=== PATIENT | male | born 1990 | race Caucasian/White ===

== ENCOUNTER 2018-03-24 23:45 | Emergency (ER) | payer SELFPAY ==
[2018-03-24 23:48] VITALS: PULSE 84; RESP 20; TEMP 35.8; BMI 22.1
--- NOTE | 2018-03-25 00:33 | ED.VISSUMM ---
- ER Visit Summary Date of Service: 03/25/18 Chief Complaint: [] Nausea vomiting diarrhea History of Present Illness: The patient is a 27 M complaining of nausea vomiting diarrhea that started this afternoon. He has had 10 episodes of vomiting nonbloody and 5 episodes of loose diarrhea. Positive abdominal dull aching cramping pain. He tried some dqvr-acf-xatjxzq stomach medicine with no relief. No sick contacts. No bad foods or recent antibiotics. He had this 1 time in the past with the stomach flu. Physical Examination: Vital signs reviewed General: Well-nourished well-developed Head: Normocephalic atraumatic Eyes: Pupils equal round and reactive to light extraocular movements intact ENT: TMs clear no hemotympanum no trauma Neck: Nontender full range of motion Cardiovascular: Regular rate rhythm no murmurs normal S1-S2 Respiratory: No distress clear to auscultation bilaterally chest nontender Abdomen: Soft mild diffuse tenderness. Nondistended normal bowel sounds no masses Back: Nontender no CVA tenderness Extremities: Nontender active range of motion ?4 extremities no trauma Skin: Normal color no trauma Neuro alert oriented cranial nerves II through XII intact normal strength sensation reflexes Test Results: [] Emergency Department Course and Treatment: [] Given IV fluids, Zofran and morphine. Lab work obtained. Lab work shows a white count of 15.0. Potassium 3.4. Lipase normal. Liver function tests normal. CT abdomen pelvis obtained shows a mild short transverse colonic colitis. Patient given Cipro Flagyl. [place] better after treatment with Phenergan as well. At this time I feel the patient can be discharged with Cipro Flagyl Zofran and Phenergan. He will follow-up as an outpatient. I have a feeling this is infectious colitis Treatment Plan: [] Disposition: [] Impression: [] Infectious colitis This note was generated with [employer] dictation software. It may contain incorrect words, spelling, and punctuation that were not noted in review of the chart prior to signing ED Disposition - Plan for ED Patient: Chief Complaint: Nausea/Vomiting Referrals: Care Physician,No Primary [Primary Care Provider] -
[2018-03-25] MEDS: Ondansetron 4 MG/2 ML Vial IV (00:49)
[2018-03-25] MEDS: Morphine 4 MG/ML Syringe IV (00:49)
[2018-03-25] MEDS: 0.9% Normal Saline 1,000 ML 1000 ML IV ×2 (00:49→02:50)
[2018-03-25 00:58] LABS: Absolute Lymphocyte Count 0.88 X10^3/ul (0.83-4.51); Absolute Neutrophil Count 13.8 X10^3/uL (2.0-7.7); Hematocrit 47.5 % (40-54); Hemoglobin 16.4 g/dl (13.0-16.5); Lymphocyte # 0.88 X10^3/ul (4.0); Lymphocyte % 5.9 % (19-41); Mean Corp Hgb Conc 34.5 g/gl (32-36); Mean Corpuscular Hgb 29.9 pg (27.0-32.0); Mean Corpuscular Volume 86.7 fL (80-94); Mean Platelet Vol. 11.3 fl (6.2-12.0); Neutrophil # 13.81 X10^3/uL (2.7-7.7); Neutrophil % 91.9 % (47-70); Platelet Count 219 K/mm3 (150-450); RBC Distribution Width SD 41.4 fl (35.1-43.9); Red Blood Count 5.48 M/mm3 (4.6-6.2)
[2018-03-25 00:59] LABS: POSITIVE COUNT NO; POSITIVE DIFFERENTIAL NO; POSITIVE MORPHOLOGY NO
--- NOTE | 2018-03-25 02:24 | CT_ITS ---
STUDY: CT ABDOMEN AND PELVIS WITH CONTRAST REASON FOR EXAM: Male, 27 years old. Lower abdominal pain and vomiting TECHNIQUE: Transaxial images were obtained from the dome of the diaphragm to the symphysis pubis without oral contrast. 100 ml of Isovue 300 contrast was administered. Sagittal and coronal images were reconstructed. Individualized dose optimization techniques were used for this CT. COMPARISON: None. FINDINGS: The visualized lung bases are unremarkable. The visualized portions of the heart are within normal limits. Normal liver. Normal gallbladder and extrahepatic biliary system. Normal spleen. Normal pancreas. Normal bilateral adrenal glands. Normal right kidney. Normal left kidney. Normal bilateral ureters. Normal visualized stomach. Normal small intestine. There is mild concentric colonic wall thickening of the hepatic flexure with relative decompression of the transverse and descending colonic segments. The appendix is visualized and appears normal. Normal abdominal aorta. Normal inferior vena cava. Normal retroperitoneum. Normal urinary bladder. Normal abdominal wall. Normal osseous structures. CT/Abdomen/Pelvis W IV Cont ONLY IMPRESSION: Mild short segment colitis involving the transverse colon of likely infectious or inflammatory in etiology. Electronically Signed: Michael Recinos MD at 2:58 EST Tel , Service support ,
--- NOTE | 2018-03-25 02:26 | ED.RN ---
COMPUTER CHARTING REINSTATED. PLEASE SEE PAPER CHARTING FOR DOWN TIME PERIOD.
[2018-03-25 02:31] LABS: AST(SGOT) 26 U/L (15-37); Alanine Aminotransfer ALT/SGPT 40 U/L (16-61); Albumin, Serum 4.6 g/dL (3.2-5.0); Alkaline Phosphatase 93 U/L (45-117); Anion Gap 11 (5-15); BUN 10 mg/dL (7-18); BUN/Creat Ratio 8.9 RATIO (10-20); Calcium,Total 9.8 mg/dL (8.5-10.1); Chloride 102 mmol/L (98-107); Creatinine, Serum 1.12 mg/dL (0.70-1.30); EST Glomerular Filtration Rate 83 mL/min (>60); Est Glom Filt Rate - Afr Amer 100 mL/min (>60); Estimated Creatinine Clearance 103.19 ml/min; Globulin 4.6 g/dL (2.2-4.2); Glucose 153 mg/dL (74-106); Lipase 45 U/L (73-393); Potassium 3.4 mmol/L (3.5-5.1); Protein, Total 9.2 g/dL (6.4-8.2); Sodium Level 136 mmol/L (136-145)
[2018-03-25] MEDS: proMETHazine 25 MG/ML Syringe 12.5 MG IV (02:59)
[2018-03-25 03:03] VITALS: BP 118/79; PULSE 92; RESP 18; O2SAT 99
[2018-03-25] MEDS: Ciprofloxacin 400 MG/200 ML BAG 200 MG IV (04:19)
--- NOTE | 2018-03-25 05:13 | ED.DEP ---
ED Disposition - Plan for ED Patient: Disposition: Home or Assisted Living Chief Complaint: Nausea/Vomiting Instructions: ED Gastroenteritis Bacterial Prescriptions: proMETHazine tablet [Phenergan] 25 mg PO Q6H PRN PRN #10 tab PRN Reason: Nausea Ondansetron [Zofran Odt] 4 mg PO Q8H PRN PRN #10 tab PRN Reason: Nausea Metronidazole [Flagyl] 500 mg PO Q8H #21 tab Ciprofloxacin [Cipro] 500 mg PO BID #14 tab Referrals: Kishan Philip MD [STAFF PHYSICIAN] -
[2018-03-25 05:54] VITALS: RESP 16
--- OUTSIDE RECORDS SUMMARY | 2018-05-27 00:07 | XMS RPT_ITS ---
:1990 Author Organization [facility] Care Team Providers Name Role Phone Primay Care Physicia, No Primary Care Unavailable Shabbir Kraus Attending Unavailable PROBLEMS PROBLEMS No Problem Records FoundPROCEDURES PROCEDURES No Procedure Records FoundRESULTS RESULTS EMERGENCY DEPARTMENT Observed: 03/25/2018 Status: F Source: [place] SUMMARY 5:44 AM [facility] REPOSITORY [facility] Medical Records Department [address] [place] [address] Emergency Department Summary 03/25/18 0033 MR#: [id number] Acct: [id number] Name: MONTEZ HOWARD Rep #: [id number] : 1990 27 From: Shabbir Kraus MD PCP: Care Physician, No Primary Status: REG ER - ER Visit Summary Date of Service: 03/25/18 Chief Complaint: [] Nausea vomiting diarrhea History of Present Illness: The patient is a 27 M complaining of nausea vomiting diarrhea that started this afternoon. He has had 10 episodes of vomiting nonbloody and 5 episodes of loose diarrhea. Positive abdominal dull aching cramping pain. He tried some qhja-kjf-xkkyqmo stomach medicine with no relief. No sick contacts. No bad foods or recent antibiotics. He had this 1 time in the past with the stomach flu. Physical Examination: Vital signs reviewed General: Well-nourished well-developed Head: Normocephalic atraumatic Eyes: Pupils equal round and reactive to light extraocular movements intact ENT: TMs clear no hemotympanum no trauma Neck: Nontender full range of motion Cardiovascular: Regular rate rhythm no murmurs normal S1-S2 Respiratory: No distress clear to auscultation bilaterally chest nontender Abdomen: Soft mild diffuse tenderness. Nondistended normal bowel sounds no masses Back: Nontender no CVA tenderness Extremities: Nontender active range of motion 4 extremities no trauma Skin: Normal color no trauma Neuro alert oriented cranial nerves II through XII intact normal strength sensation reflexes Test Results: [] Emergency Department Course and Treatment: [] Given IV fluids, Zofran and morphine. Lab work obtained. Lab work shows a white count of 15.0. Potassium 3.4. Lipase normal. Liver function tests normal. CT abdomen pelvis obtained shows a mild short transverse colonic colitis. Patient given Cipro Flagyl. [place] better after treatment with Phenergan as well. At this time I feel the patient can be discharged with Cipro Flagyl Zofran and Phenergan. He will follow-up as an outpatient. I have a feeling this is infectious colitis Treatment Plan: [] Disposition: [] Impression: [] Infectious colitis This note was generated with [employer] dictation software. It may contain incorrect words, spelling, and punctuation that were not noted in review of the chart prior to signing ED Disposition - Plan for ED Patient: Chief Complaint: Nausea/Vomiting Referrals: Care Physician,No Primary [Primary Care Provider] - What to do if you have Problems For any increased pain, shortness of breath, bleeding, nausea or vomiting, chest pain, or any unexpected problems, contact your Primary Care Provider. Call [facility] ([phone]) or report to the closest Emergency Room. Call 911 if necessary. 03/25/18 0544 <Electronically signed by Shabbir Kraus MD> Date Shabbir Kraus MD Cosigner Signature (If Indicated): Date CC: No Primary Care Physician DISCHARGE INSTRUCTION Observed: 03/25/2018 Status: F Source: [place] 5:44 AM [facility] REPOSITORY [facility] Medical Records Department [address] [place] [address] Discharge Instruction 03/25/18 0513 MR#: [id number] Acct: [id number] Name: MONTEZ HOWARD Rep #: [id number] : 1990 27 From: Shabbir Kraus MD PCP: Care Physician, No Primary Status: REG ER ED Disposition - Plan for ED Patient: Disposition: Home or Assisted Living Chief Complaint: Nausea/Vomiting Instructions: ED Gastroenteritis Bacterial Prescriptions: proMETHazine tablet [Phenergan] 25 mg PO Q6H PRN PRN #10 tab PRN Reason: Nausea Ondansetron [Zofran Odt] 4 mg PO Q8H PRN PRN #10 tab PRN Reason: Nausea Metronidazole [Flagyl] 500 mg PO Q8H #21 tab Ciprofloxacin [Cipro] 500 mg PO BID #14 tab Referrals: Kishan Philip MD [STAFF PHYSICIAN] - What to do if you have Problems For any increased pain, shortness of breath, bleeding, nausea or vomiting, chest pain, or any unexpected problems, contact your Primary Care Provider. Call [facility] ([phone]) or report to the closest Emergency Room. Call 911 if necessary. 03/25/18 0544 <Electronically signed by Shabbir Kraus MD> Date Shabbir Kraus MD Cosigner Signature (If Indicated): Date CC: No Primary Care Physician ABDOMEN/PELVIS W IV CONT Observed: 03/25/2018 Status: F Source: [place] ONLY 2:25 AM [facility] REPOSITORY [facility] Imaging Services [address] [place] [address] Abdomen/Pelvis W IV Cont ONLY MR#: [id number] Acct: [id number] Name: MONTEZ HOWARD Rep #: [id number] : 1990 M 27 From: Michael Recinos MD PCP: Care Physician, No Primary Status: REG ER Study: Abdomen/Pelvis W IV Cont ONLY Date of Exam: 03/25/18 Exam# [id number] Ordering Dr: Shabbir Kraus MD STUDY: CT ABDOMEN AND PELVIS WITH CONTRAST REASON FOR EXAM: Male, 27 years old. Lower abdominal pain and vomiting TECHNIQUE: Transaxial images were obtained from the dome of the diaphragm to the symphysis pubis without oral contrast. 100 ml of Isovue 300 contrast was administered. Sagittal and coronal images were reconstructed. Individualized dose optimization techniques were used for this CT. COMPARISON: None. FINDINGS: The visualized lung bases are unremarkable. The visualized portions of the heart are within normal limits. Normal liver. Normal gallbladder and extrahepatic biliary system. Normal spleen. Normal pancreas. Normal bilateral adrenal glands. Normal right kidney. Normal left kidney. Normal bilateral ureters. Normal visualized stomach. Normal small intestine. There is mild concentric colonic wall thickening of the hepatic flexure with relative decompression of the transverse and descending colonic segments. The appendix is visualized and appears normal. Normal abdominal aorta. Normal inferior vena cava. Normal retroperitoneum. Normal urinary bladder. Normal abdominal wall. Normal osseous structures. CT/Abdomen/Pelvis W IV Cont ONLY IMPRESSION: Mild short segment colitis involving the transverse colon of likely infectious or inflammatory in etiology. Electronically Signed: Michael Recinos MD at 2:58 EST Tel , Service support , CC: No Primary Care Physician; Shabbir Kraus MD Optometric Aide: Signed CBC W/DIFF, AUTOMATED Collected: 03/25/2018 Status: F Source: [place] 12:50 AM [facility] REPOSITORY TYPE CODE TESTS RESULT OUT OF RANGE REFERENCE UNITS LAB L100.1000 4.4-11.0 K/mm3 High WBC 15.0 LAB L100.1200 4.6-6.2 M/mm3 Normal RBC 5.48 LAB L100.1300 13.0-16.5 g/dl Normal HGB 16.4 LAB L100.1400 40-54 % Normal HCT 47.5 LAB L100.1500 80-94 fL Normal MCV 86.7 LAB L100.1600 27.0-32.0 pg Normal MCH 29.9 LAB L100.1700 32-36 g/gl Normal MCHC 34.5 LAB L100.1810 11.6-14.6 % Normal RDW CV 13.0 LAB L100.1820 35.1-43.9 fl Normal RDW SD 41.4 LAB L100.1900 150-450 K/mm3 Normal PLT 219 LAB L100.2000 6.2-12.0 fl Normal MPV 11.3 LAB L100.2100 47-70 % High NEUT% 91.9 LAB L100.2200 19-41 % Low LY% 5.9 LAB L100.2300 0-10 % Normal MONO% 2.0 LAB L100.2400 0-5 % Normal EO% 0.0 LAB L100.2500 0-1 % Normal BASO% 0.0 LAB L100.2550 0.0-0.9 % Normal IM GRAN % 0.200 Result Comment: IG% - Immature Granulocytes (promyelocytes, myelocytes and metamyelocytes) > 1% indicates that a LEFT SHIFT is Present. LAB L100.2620 2.0-7.7 X10 3/uL High Absolute Neut 13.8 LAB L100.2720 0.83-4.51 X10 3/ul Normal Absolute Lymph 0.88 Performed By: #### L100.0100 #### [facility] [address] [place], [address] COMPREHENSIVE METABOLIC Collected: 03/25/2018 Status: F Source: [facility] 12:50 AM [facility] REPOSITORY TYPE CODE TESTS RESULT OUT OF RANGE REFERENCE UNITS LAB L501.0100 74-106 mg/dL High GLU 153 Result Comment: Fasting Glucose result greater than or equal to 126 mg/dL suggests DIABETES MELLITUS per A.D.A. criteria. Please note revised GLUCOSE reference range effective 2017. LAB L501.1000 7-18 mg/dL Normal BUN 10 LAB L501.1100 0.70-1.30 mg/dL Normal CREAT,SERUM 1.12 Result Comment: The validity of the calculated GFR AND GFRAA in patients over 70 years has not been determined. Clinical correlation is essential. LAB L501.1110 >60 mL/min Normal EST GFR 83 Result Comment: Non- GFR Calc LAB L501.1115 >60 mL/min Normal EST GFR - AA 100 Result Comment: GFR Calc LAB L501.1255 ml/min Normal Estimated CRCL 103.19 LAB L501.1300 10-20 RATIO Low BUN/CRE 8.9 LAB L501.1500 6.4-8. g/dL High 2 T PROT 9.2 LAB L501.1800 3.2-5. g/dL 0 ALB Normal 4.6 LAB L501.1950 2.2-4. g/dL High 2 GLOB 4.6 LAB L501.2000 0.9-2. RATIO 4 A/G Normal 1.0 LAB L501.2200 8.5-10 mg/dL .1 CA Normal 9.8 LAB L501.4100 15-37 U/L AST Normal 26 LAB L501.4305 45-117 U/L ALK P Normal 93 LAB L501.4405 16-61 U/L ALT Normal 40 LAB L501.4600 0.20-1 mg/dL .00 T BILI Normal 0.60 LAB L501.5300 136-14 mmol/L 5 NA Normal 136 LAB L501.5600 3.5-5. mmol/L Low 1 K 3.4 LAB L501.5900 98-107 mmol/L CL Normal 102 LAB L501.6100 21.0-3 mmol/L 2.0 CO2 Normal 23.0 LAB L501.6200 5-15 GAP Normal 11 Performed By: #### L500.4050, L501.2450 #### [facility] [address] [place], [address] LIPASE Collected: 03/25/2018 Status: F Source: [place] 12:50 AM [facility] REPOSITORY TYPE CODE TESTS RESULT OUT OF REFERENCE UNITS RANGE LAB L501.2450 73-393 U/L Low LIPASE 45 Performed By: #### L500.4050, L501.2450 #### [facility] [address] [place], [place], [address] ALLERGIES ALLERGIES DATE TYPE / CODE NAME / CODE REACTION SEVERITY SOURCE 03/24/2018 Drug No Known Unknown [facility] Allergy/4160 Allergies/F00 [facility] [address]382(SNOMED [id number](RXNOR Repository CT) M) ENCOUNTERS ENCOUNTERS ADMIT/DISCHARGE ACCOUNT ADMITTING ENCOUNTER LOCATION SOURCE NUMBER CLASS 03/24/2018/ [id number] Emergency Josef Wiley [address] [place] [address] ing:ED Repository PAYERS PAYERS ENCOUNTER GUARANTOR PAYER SUBSCRIBER SOURCE 03/24/2018 [facility] [address]Rex: [phone] Number: Effective Repository [phone] () Date:2018-03-24
== END 2018-03-25 05:54 | disposition home or self-care (01) ==
PROVIDERS: Emergency Provider Emergency Medicine
DX: A09 Infectious gastroenteritis and colitis, unspecified (principal); Z72.0 Tobacco use
CPT/HCPCS: 74160; 74177; 80053; 83690; 85025; 96361; 96365; 96366; 96367; 96375; 99283; J7030; Q9967; J0744; J2405

== ENCOUNTER 2018-05-26 15:41 | Emergency (ER) | payer SELFPAY ==
[2018-05-26 15:42] VITALS: BP 140/73; PULSE 71; RESP 18; TEMP 36.3; O2SAT 96; BMI 21.7
--- NOTE | 2018-05-26 16:13 | ED.VISSUMM ---
- ER Visit Summary Date of Service: 05/26/18 Chief Complaint: Nausea, vomiting and diarrhea History of Present Illness: The patient is a 27 M no dyspnea past medical or surgical history. Patient states in March of same episode to this secondary to colitis. States that he had nausea, vomiting diarrhea today the diarrhea was first name and nausea vomiting. Mild abdominal cramping. No fever. No dysuria. No melena. No hematemesis. He has had no prior abdominal surgeries. Physical Examination: Well-appearing male. Vital signs are stable. He is afebrile. Blood pressure 140/73. H EENT exam unremarkable. Moist mucous membranes. Neck nontender no lymphadenopathy. Lungs clear to auscultation bilaterally. Heart regular rhythm no murmur rate about 80. Abdomen soft and nontender. Nondistended normal bowel sounds no peritoneal signs. No signs of obstruction. No hernias or masses. Both the right upper and right lower quadrant unremarkable. Extremities moving all 4. Neurovascular intact. No edema. Back nontender. Neurologically is awake and alert with no focal motor deficits. Test Results: CBC shows a white count of 13. Normal H&H. No bands. Electrolytes unremarkable normal creatinine normal gap. Emergency Department Course and Treatment: Treated with IV fluids and IV Phenergan. Patient was also given Toradol for his crampy abdominal pain. Additional Phenergan. Additional IV Zofran and Ativan. On multiple repeat exams he is feeling better. He has been able to hold down p.o. fluids. He is comfortable being discharged home. I do not feel he needs any imaging. Treatment Plan: Fluids and rest. Increase diet slowly. Zofran as needed for nausea. Disposition: Discharge Impression: Acute nausea and vomiting This note was generated with [employer] dictation software. It may contain incorrect words, spelling, and punctuation that were not noted in review of the chart prior to signing ED Disposition - Plan for ED Patient: Referrals: Care Physician,No Primary [Primary Care Provider] -
[2018-05-26] MEDS: proMETHazine 25 MG/ML Syringe 12.5 MG IV ×3 (16:23→20:58)
[2018-05-26] MEDS: 0.9% Normal Saline 1,000 ML 1000 ML IV (16:23)
[2018-05-26] MEDS: Ketorolac 30 MG/ML Syringe IV (17:03)
[2018-05-26] MEDS: Ondansetron 4 MG/2 ML Vial IV (17:40)
[2018-05-26] MEDS: LORazepam 2 MG/ML Syringe 1 MG IV ×2 (17:41→20:59)
--- NOTE | 2018-05-26 17:42 | ED.RN ---
pt vomiting again, some bile. new orders recied. pt now dry heaving
[2018-05-26 19:55] VITALS: RESP 14
[2018-05-26 21:00] VITALS: BP 123/79; PULSE 64; RESP 12; O2SAT 99
[2018-05-26 21:20] LABS: Absolute Lymphocyte Count 0.83 X10^3/ul (0.83-4.51); Absolute Neutrophil Count 12.4 X10^3/uL (2.0-7.7); Eosinophil# 0.01 X10^3/uL; Eosinophils% 0.1 % (0-5); Hematocrit 46.7 % (40-54); Hemoglobin 16.1 g/dl (13.0-16.5); Lymphocyte # 0.83 X10^3/ul (4.0); Lymphocyte % 6.1 % (19-41); Mean Corp Hgb Conc 34.5 g/gl (32-36); Mean Corpuscular Hgb 30.4 pg (27.0-32.0); Mean Corpuscular Volume 88.1 fL (80-94); Mean Platelet Vol. 12.6 fl (6.2-12.0); Monocyte# 0.37 X10^3/uL; Monocyte% 2.7 % (0-10); Neutrophil # 12.36 X10^3/uL (2.7-7.7); Platelet Count 236 K/mm3 (150-450); RBC Distribution Width CV 13.1 % (11.6-14.6); RBC Distribution Width SD 42.1 fl (35.1-43.9); White Blood Count 13.6 K/mm3 (4.4-11.0)
[2018-05-26 21:30] LABS: POSITIVE COUNT NO; POSITIVE DIFFERENTIAL NO; POSITIVE MORPHOLOGY NO
[2018-05-26 22:21] LABS: Anion Gap 6 (5-15); BUN 10 mg/dL (7-18); BUN/Creat Ratio 10.1 RATIO (10-20); Calcium,Total 8.5 mg/dL (8.5-10.1); Chloride 108 mmol/L (98-107); Creatinine, Serum 0.99 mg/dL (0.70-1.30); EST Glomerular Filtration Rate 95 mL/min (>60); Est Glom Filt Rate - Afr Amer 115 mL/min (>60); Estimated Creatinine Clearance 114.03 ml/min; Glucose 135 mg/dL (74-106); Potassium 3.7 mmol/L (3.5-5.1); Sodium Level 140 mmol/L (136-145)
--- NOTE | 2018-05-26 23:13 | ED.DEP ---
ED Disposition - Plan for ED Patient: Disposition: Home or Assisted Living Instructions: ED Nausea Vomiting Prescriptions: Ondansetron [Zofran Odt] 4 mg PO Q8H PRN PRN #10 tab PRN Reason: Nausea Referrals: Jamar Yarbrough MD [STAFF PHYSICIAN] - 3-5 Days if not improving Additional Instructions: Plenty fluids and rest. Increase diet as tolerated. Zofran for nausea. Follow-up if not improving.
[2018-05-26 23:30] VITALS: BP 127/92; PULSE 78; RESP 16; O2SAT 99
[2018-05-26] MEDS: Ondansetron ODT 4 MG Tablet PO (23:30)
== END 2018-05-26 23:34 | disposition home or self-care (01) ==
PROVIDERS: Emergency Provider Emergency Medicine
DX: R11.2 Nausea with vomiting, unspecified (principal); R19.7 Diarrhea, unspecified; R10.9 Unspecified abdominal pain; Z72.0 Tobacco use
CPT/HCPCS: 80048; 85025; 96361; 96374; 96375; 96376; 99284; J7030; A4216; J2405

== ENCOUNTER 2018-05-28 07:52 | Emergency (ER) | payer SELFPAY ==
[2018-05-28 07:53] VITALS: BP 125/78; PULSE 66; RESP 14; TEMP 37.2; O2SAT 100; BMI 20.6
--- NOTE | 2018-05-28 08:06 | CT_ITS ---
STUDY: CT ABDOMEN AND PELVIS WITH CONTRAST REASON FOR EXAM: Male, 27 years old. The patient has a history of nausea and vomiting. RADIATION DOSAGE (If Supplied By Facility): CTDIvol = ( 9.91 ) mGy, DLP = ( 362.80 ) mGycm TECHNIQUE: Transaxial images were obtained from the dome of the diaphragm to the symphysis pubis with oral contrast. 100ml IV/Oral Isovue 300 was administered. Sagittal and coronal images were reconstructed. Individualized dose optimization techniques were used for this CT. COMPARISON: Comparison is made with prior study dated March 25, 2018. FINDINGS: The visualized lung bases are unremarkable. The visualized portions of the heart are within normal limits. Normal liver. Normal gallbladder and extrahepatic biliary system. Normal spleen. Normal pancreas. Normal bilateral adrenal glands. Normal right kidney. Normal left kidney. Normal visualized stomach. Normal small intestine. There is evidence of diffuse circumferential thickness of the wall of the transverse colon and descending colon suggestive of a colitis. There is also evidence of a edematous changes involving the ascending colon. The appendix is visualized and appears normal. Normal abdominal aorta. Normal inferior vena cava. Normal retroperitoneum. Normal urinary bladder. Normal abdominal wall. Normal osseous structures. CT/Abdomen/Pelvis WITH Contrast IMPRESSION: Findings in keeping with colitis involving the descending, transverse and descending colon. Electronically Signed: Bobo Eugene, at 11:20 EDT , Service support ,
[2018-05-28] MEDS: 0.9% Normal Saline 1,000 ML 1000 ML IV (08:14)
[2018-05-28] MEDS: Ketorolac 30 MG/ML Syringe IV (08:14)
[2018-05-28] MEDS: proMETHazine 25 MG/ML Syringe 12.5 MG IV (08:14)
--- NOTE | 2018-05-28 08:15 | ED.VISSUMM ---
- ER Visit Summary Date of Service: 05/28/18 Chief Complaint: Nausea and vomiting History of Present Illness: The patient is a 27 M who was seen in the ER for nausea, vomiting, and diarrhea on the . Patient states he had become ill that day. He states he slept all day yesterday and then woke this morning and has vomited 3 times already. He states he has not had further stool and does not believe he is passing gas. Patient was seen in March for similar symptoms and had colitis. He states a few years ago he had to be admitted at [facility] for similar but he does not remember his final diagnosis. Patient has had no prior abdominal surgeries. Physical Examination: Vital signs are unremarkable. Patient is in no acute distress and is nontoxic appearing. Head and neck examination is normal. Heart is regular rate and rhythm. Palpable pulses are noted throughout. Lungs are clear with good air movement throughout. Abdomen is soft and nontender. Hypoactive bowel sounds are present. Extremity examination is unremarkable with full range of motion. Neurologic examination reveals no focal deficits. Test Results: CBC is unremarkable. Chemistry studies significant only for potassium slightly low at 3.3. LFTs normal. CT abdomen pelvis with contrast shows colitis of the transverse and descending colon. Emergency Department Course and Treatment: Patient was initially given Phenergan, Toradol, and IV fluids. After drinking the contrast initially he did vomit again. He was then given a dose of Reglan and Benadryl. At this time patient is resting comfortably. Test results are discussed with him. We will treat him with a course of Cipro and Flagyl. I recommended follow-up with surgeon for possible colonoscopy after this acute flare is over as this is at least the third time he has had colitis. Treatment Plan: [] Disposition: Discharge Impression: Colitis This note was generated with [employer] dictation software. It may contain incorrect words, spelling, and punctuation that were not noted in review of the chart prior to signing ED Disposition - Plan for ED Patient: Referrals: Care Physician,No Primary [Primary Care Provider] -
[2018-05-28 08:18] LABS: Absolute Lymphocyte Count 1.41 X10^3/ul (0.83-4.51); Absolute Neutrophil Count 5.8 X10^3/uL (2.0-7.7); Eosinophil# 0.03 X10^3/uL; Eosinophils% 0.4 % (0-5); Hematocrit 47.2 % (40-54); Hemoglobin 16.2 g/dl (13.0-16.5); Lymphocyte # 1.41 X10^3/ul (4.0); Mean Corp Hgb Conc 34.3 g/gl (32-36); Mean Corpuscular Hgb 30.2 pg (27.0-32.0); Mean Corpuscular Volume 88.1 fL (80-94); Mean Platelet Vol. 11.5 fl (6.2-12.0); Monocyte% 7.7 % (0-10); Neutrophil # 5.77 X10^3/uL (2.7-7.7); Neutrophil % 73.8 % (47-70); Platelet Count 232 K/mm3 (150-450); RBC Distribution Width SD 41.9 fl (35.1-43.9); Red Blood Count 5.36 M/mm3 (4.6-6.2); White Blood Count 7.8 K/mm3 (4.4-11.0)
[2018-05-28 08:19] LABS: POSITIVE COUNT NO; POSITIVE DIFFERENTIAL NO; POSITIVE MORPHOLOGY NO
[2018-05-28 08:36] LABS: AST(SGOT) 15 U/L (15-37); Alanine Aminotransfer ALT/SGPT 31 U/L (16-61); Albumin, Serum 4.2 g/dL (3.2-5.0); Alkaline Phosphatase 86 U/L (45-117); Anion Gap 8 (5-15); BUN 10 mg/dL (7-18); BUN/Creat Ratio 8.2 RATIO (10-20); Bilirubin, Direct 0.17 mg/dL (0.00-0.30); Calcium,Total 9.4 mg/dL (8.5-10.1); Chloride 102 mmol/L (98-107); Creatinine, Serum 1.22 mg/dL (0.70-1.30); EST Glomerular Filtration Rate 75 mL/min (>60); Est Glom Filt Rate - Afr Amer 90 mL/min (>60); Estimated Creatinine Clearance 88.11 ml/min; Globulin 4.6 g/dL (2.2-4.2); Glucose 133 mg/dL (74-106); Potassium 3.3 mmol/L (3.5-5.1); Protein, Total 8.8 g/dL (6.4-8.2); Sodium Level 140 mmol/L (136-145)
[2018-05-28] MEDS: 0.9% Normal Saline 1,000 ML 150 ML IV (09:03)
[2018-05-28] MEDS: DiphenhydrAMINE 50 MG/ML Syringe 25 MG IV (09:03)
[2018-05-28] MEDS: Metoclopramide 10 MG/2 ML Vial IV (09:03)
--- NOTE | 2018-05-28 11:46 | ED.DEP ---
ED Disposition - Plan for ED Patient: Disposition: Home or Assisted Living Instructions: ED Gastroenteritis Bacterial Prescriptions: proMETHazine tablet [Phenergan] 25 mg PO Q6H PRN PRN #10 tablet PRN Reason: Nausea Ciprofloxacin [Cipro] 500 mg PO BID #14 tablet Metronidazole [Flagyl] 500 mg PO Q6H #40 tablet Referrals: Mynor Alcantar MD [STAFF PHYSICIAN] - 1-2 Weeks
[2018-05-28 11:59] VITALS: BP 124/76; PULSE 84; RESP 16; O2SAT 98
== END 2018-05-28 12:04 | disposition home or self-care (01) ==
PROVIDERS: Emergency Provider Emergency Medicine
DX: K52.9 Noninfective gastroenteritis and colitis, unspecified (principal); E87.6 Hypokalemia; Z72.0 Tobacco use
CPT/HCPCS: 74177; 80048; 80076; 85025; 96361; 96374; 96375; 99283; J7030; Q9967; A4216

== ENCOUNTER 2018-05-30 14:00 | Emergency (ER) | payer SELFPAY ==
[2018-05-30 14:00] VITALS: BP 140/84; PULSE 74; RESP 16; TEMP 36.6; O2SAT 98; BMI 20.9
[2018-05-30 14:46] LABS: Absolute Neutrophil Count 8.6 X10^3/uL (2.0-7.7); Basophil# 0.01 X10^3/uL; Basophil% 0.1 % (0-1); Eosinophil# 0.38 X10^3/uL; Eosinophils% 3.2 % (0-5); Hematocrit 46.2 % (40-54); Hemoglobin 16.2 g/dl (13.0-16.5); Lymphocyte % 15.3 % (19-41); Mean Corp Hgb Conc 35.1 g/gl (32-36); Mean Corpuscular Hgb 30.4 pg (27.0-32.0); Mean Corpuscular Volume 86.7 fL (80-94); Mean Platelet Vol. 11.1 fl (6.2-12.0); Monocyte# 0.98 X10^3/uL; Monocyte% 8.3 % (0-10); Neutrophil # 8.58 X10^3/uL (2.7-7.7); Neutrophil % 72.9 % (47-70); Platelet Count 242 K/mm3 (150-450); RBC Distribution Width SD 41.3 fl (35.1-43.9); Red Blood Count 5.33 M/mm3 (4.6-6.2); White Blood Count 11.8 K/mm3 (4.4-11.0)
[2018-05-30 14:48] LABS: POSITIVE COUNT NO; POSITIVE DIFFERENTIAL NO; POSITIVE MORPHOLOGY NO
[2018-05-30 14:57] LABS: Anion Gap 5 (5-15); BUN 12 mg/dL (7-18); Chloride 102 mmol/L (98-107); EST Glomerular Filtration Rate 76 mL/min (>60); Est Glom Filt Rate - Afr Amer 92 mL/min (>60); Estimated Creatinine Clearance 91.14 ml/min; Glucose 112 mg/dL (74-106); Potassium 3.6 mmol/L (3.5-5.1); Sodium Level 138 mmol/L (136-145)
--- NOTE | 2018-05-30 15:40 | ED.VISSUMM ---
- ER Visit Summary Date of Service: 05/30/18 Chief Complaint: Nausea and vomiting, abdominal pain History of Present Illness: The patient is a 27 M presents for nausea and vomiting, abdominal pain since this morning. This is patient's third visit this week for the same complaint. Patient was seen 2 days ago and had a CT scan that showed colitis. Patient is currently on Cipro and Flagyl and has been taking it as prescribed. He is using Phenergan for nausea. He states he was feeling well when he was discharged and was feeling well yesterday. However this morning he woke up with the nausea and vomiting again. He had one loose stool. He is also having diffuse abdominal pain, mainly in the epigastric region. Patient denies fever, cough, congestion, chest pain, shortness of breath or other complaints. Patient had similar episodes in March and remotely a couple years ago. Patient does smoke marijuana regularly. He does not note any improvement with hot showers. Patient denies any other drug use. Patient uses tobacco. Physical Examination: Vital signs: afebrile, hemodynamically stable, no hypoxia on room air General: well nourished, well developed, in no distress, sitting on the edge of the bed vomiting loudly, small amount of emesis in bag Skin: warm, dry, no rash, no pallor HEENT: normocephalic and atraumatic; PERRL, EOMI, moist mucous membranes Cardiovascular: regular rate and rhythm without murmurs, no peripheral edema, 2+ pulses all distal extremities Respiratory: No increased work of breathing, lungs are clear to auscultation bilaterally, no rales, rhonchi or wheezing Abdominal: Abdomen is soft, mildly tender in the epigastrium with normoactive bowel sounds, no guarding or rebound, no masses MSK: Moves all extremities, no deformities, normal strength Neuro: Awake and alert, oriented ?4. No facial droop, sensation and motor function intact and symmetric Test Results: Abnormal Lab Results 05/30/18 05/30/18 05/30/18 14:10 14:35 14:35 WBC 11.8 H RBC 5.33 Hgb 16.2 Hct 46.2 MCV 86.7 MCH 30.4 MCHC 35.1 RDW 13.0 RDW Differential 41.3 Plt Count 242 MPV 11.1 Immature Gran % (Auto) 0.200 Neut % (Auto) 72.9 H Lymph % (Auto) 15.3 L Bell % (Auto) 8.3 Eos % (Auto) 3.2 Baso % (Auto) 0.1 Absolute Neuts (auto) 8.6 H Absolute Lymphs (auto) 1.80 Total Counted Not Reportable Sodium 138 Potassium 3.6 Chloride 102 Carbon Dioxide 31.0 Anion Gap 5 BUN 12 Creatinine 1.20 Estim Creat Clear Calc 91.14 Est GFR (MDRD) Af Amer 92 Est GFR (MDRD) Non-Af 76 BUN/Creatinine Ratio 10.0 Glucose 112 H Calcium 9.0 Total Bilirubin 1.00 Direct Bilirubin 0.22 AST 17 ALT 23 Alkaline Phosphatase 79 Total Protein 8.1 Albumin 4.1 Globulin 4.0 Urine Color Urine Clarity Urine pH Ur Specific Sherrard Urine Protein Urine Glucose (UA) Urine Ketones Urine Occult Blood Urine Nitrite Urine Bilirubin Urine Urobilinogen Ur Leukocyte Esterase Urine RBC Urine WBC Ur Squamous Epith Cells Urine Bacteria Urine Mucus Urine Opiates Screen Urine Methadone Screen Ur Barbiturates Screen Ur Phencyclidine Scrn Ur Amphetamines Screen U Methamphetamin-MDMA U Benzodiazepines Scrn Urine Cocaine Screen U Cannabinoids Screen Ur Drug Screen Comment 05/30/18 05/30/18 15:17 15:42 WBC RBC Hgb Hct MCV MCH MCHC RDW RDW Differential Plt Count MPV Immature Gran % (Auto) Neut % (Auto) Lymph % (Auto) Bell % (Auto) Eos % (Auto) Baso % (Auto) Absolute Neuts (auto) Absolute Lymphs (auto) Total Counted Sodium Potassium Chloride Carbon Dioxide Anion Gap BUN Creatinine Estim Creat Clear Calc Est GFR (MDRD) Af Amer Est GFR (MDRD) Non-Af BUN/Creatinine Ratio Glucose Calcium Total Bilirubin Direct Bilirubin AST ALT Alkaline Phosphatase Total Protein Albumin Globulin Urine Color Yellow Urine Clarity Sl. Cloudy Urine pH 8.0 Ur Specific Sherrard 1.015 Urine Protein Negative Urine Glucose (UA) Normal Urine Ketones Negative Urine Occult Blood Negative Urine Nitrite Negative Urine Bilirubin Negative Urine Urobilinogen Normal Ur Leukocyte Esterase 25 H Urine RBC 0 SEEN Urine WBC 0-5 SEEN Ur Squamous Epith Cells 0-5 SEEN Urine Bacteria 0 SEEN Urine Mucus 0 SEEN Urine Opiates Screen NEGATIVE Urine Methadone Screen NEGATIVE Ur Barbiturates Screen NEGATIVE Ur Phencyclidine Scrn NEGATIVE Ur Amphetamines Screen NEGATIVE U Methamphetamin-MDMA NEGATIVE U Benzodiazepines Scrn NEGATIVE Urine Cocaine Screen NEGATIVE U Cannabinoids Screen POSITIVE H Ur Drug Screen Comment Medications Given Discontinued Medications Haloperidol Lactate (Haldol) 5 mg IV X1 ONE Stop: 05/30/18 15:33 Last Admin: 05/30/18 15:44 Dose: 5 mg Sodium Chloride () 1,000 mls @ 999 mls/hr IV .Q1H1M ONE Stop: 05/30/18 16:43 Last Admin: 05/30/18 15:45 Dose: 999 mls/hr Metoclopramide HCl (Reglan) 10 mg IV X1 ONE Stop: 05/30/18 18:20 Last Admin: 05/30/18 18:42 Dose: 10 mg Prednisone () 60 mg PO X1 ONE Stop: 05/30/18 18:20 Last Admin: 05/30/18 18:42 Dose: 60 mg Emergency Department Course and Treatment: Given that this is patient's third visit for the same complaints and his symptoms seem cyclic in nature, patient was given IV Haldol for treatment of cyclic vomiting. He had improvement of his symptoms with the Haldol. Goldberg. Labs were performed showing improvement in his leukocytosis, no electrolyte derangements, no hepatic dysfunction, and urine was negative for infection. Tox screen showed positive THC but otherwise was negative. Patient was given additional Reglan for further symptoms. Patient's CT scan from his prior visit was reviewed and showed pancolitis. Patient was discussed with Dr. Santana, who adjusted that pain colitis in a patient his age is concerning for inflammatory bowel disease rather than infectious colitis, and he needs follow-up with a cleaning crew member who can evaluate him and manage him for likely inflammatory bowel disease. Patient was prescribed prednisone and given the first dose in the emergency department. He was given follow-up with a primary care doctor, as he does not have one and he continues to use the emergency department for his cyclic vomiting and abdominal pain episodes. Patient will keep his appointment with Dr. Alcantar for evaluation for colonoscopy. Patient was told he will likely need a GI referral from his primary care doctor. Patient had great improvement in his symptoms at time of discharge and was thirsty. He tolerated oral intake. He was discharged home with the prednisone prescription. He already has antiemetics at home. Treatment Plan: [] Disposition: [] Impression: Inflammatory colitis This note was generated with [employer] software. It may contain incorrect words, spelling, and punctuation that were not noted in review of the chart prior to signing ED Disposition - Plan for ED Patient: Disposition: Home or Assisted Living Instructions: ED Inflam Bowel Disease Crohn Prescriptions: RX: Prednisone 10 mg PO DAILY #63 tab Referrals: Care Physician,No Primary [Primary Care Provider] - Damari Smalls MD [STAFF PHYSICIAN] - As soon as possible Additional Instructions: We are concerned you may have inflammatory bowel disease, such as Crohn's disease or ulcerative colitis. You will need a colonoscopy in order to make the diagnosis. Take the prednisone daily as prescribed. You may stop the antibiotics, as you are symptoms do not seem likely to be due to infection. Use your nausea medicines as needed for symptoms. Please follow-up with the primary care doctor on this paperwork or the primary care doctor of your choice as soon as possible for reevaluation and for further referral to a cleaning crew member as needed. Please keep your appointment for evaluation for need for colonoscopy with Dr. Alcantar on June 11 as scheduled. He stopped smoking cigarettes and marijuana. These will essentially make your symptoms worse or make it harder to heal. If you have any worsening of your condition or any new concerning symptoms, please return immediately to the emergency department for another evaluation.
[2018-05-30] MEDS: Haloperidol Lactate 5 MG/ML Vial IV (15:44)
[2018-05-30] MEDS: 0.9% Normal Saline 1,000 ML 999 ML IV (15:45)
[2018-05-30 15:49] LABS: AST(SGOT) 17 U/L (15-37); Alanine Aminotransfer ALT/SGPT 23 U/L (16-61); Albumin, Serum 4.1 g/dL (3.2-5.0); Alkaline Phosphatase 79 U/L (45-117); Bilirubin, Direct 0.22 mg/dL (0.00-0.30); Protein, Total 8.1 g/dL (6.4-8.2)
[2018-05-30 16:32] LABS: Bacteria 0 SEEN /hpf (None Seen); Mucous, Urine 0 SEEN /hpf (<or=2+); Red Blood Cells-Urine 0 SEEN /hpf (0-5)
[2018-05-30 16:34] LABS: Color, Urine Yellow (Yellow); Glucose, Dipstick Normal (Normal); Ketone-Dipstick Negative (Negative); Leukocyte Esterase-Dipstick 25 /ul (Negative); Nitrite-Dipstick Negative (Negative); Occult Blood-Urine Negative /ul (Negative); Protein-Dipstick Negative (Negative); Specific Gravity, Urine 1.015 (1.002-1.030); Urine Bilirubin Dipstick Negative (Negative); Urine Clarity Sl. Cloudy (Clear); Urine Urobilinogen Normal (Normal)
[2018-05-30 16:49] LABS: Squamous Epithelial Cells - UA 0-5 SEEN /hpf (0-5); White Blood Cells 0-5 SEEN /hpf (0-5)
[2018-05-30 16:52] LABS: Amphetamine Urine VISTA NEGATIVE (<1000 ng/mL); Barbiturate Urine VISTA NEGATIVE (< 200 ng/mL); Benzodiazepine Urine VISTA NEGATIVE (< 200 ng/mL); Cocaine Urine VISTA NEGATIVE (< 300 ng/mL); Ecstacy Urine VISTA NEGATIVE (< 500 ng/mL); Methadone Urine VISTA NEGATIVE (< 300 ng/mL); PCP Urine VISTA NEGATIVE (< 25 ng/mL); THC Urine VISTA POSITIVE (< 50 ng/mL); Vista UDS pH Range 6
[2018-05-30] MEDS: predniSONE 20 MG Tablet 60 MG PO (18:42)
[2018-05-30] MEDS: Metoclopramide 10 MG/2 ML Vial IV (18:42)
[2018-05-30 19:08] VITALS: RESP 18; O2SAT 98
== END 2018-05-30 19:09 | disposition home or self-care (01) ==
PROVIDERS: Emergency Provider Emergency Medicine
DX: K52.9 Noninfective gastroenteritis and colitis, unspecified (principal); R10.84 Generalized abdominal pain; G43.A0 Cyclical vomiting, in migraine, not intractable; Z72.0 Tobacco use; Z79.899 Other long term (current) drug therapy
CPT/HCPCS: 80048; 80076; 80307; 81001; 85025; 96361; 96374; 96375; 99284; J7030; A4216; J2405

== ENCOUNTER 2018-06-16 13:02 | Emergency (ER) | payer SELFPAY ==
[2018-06-11 13:05] VITALS: BMI 20.9
[2018-06-16 13:03] VITALS: BP 160/93; PULSE 79; RESP 16; TEMP 36.4; O2SAT 100; BMI 20.9
--- NOTE | 2018-06-16 13:27 | CT_ITS ---
STUDY: CT ABDOMEN AND PELVIS WITH CONTRAST REASON FOR EXAM: Male, 28 years old. Abdominal pain and vomiting RADIATION DOSAGE (If Supplied By Facility): CTDIvol = ( 8.66 ) mGy, DLP = ( 557.20 ) mGycm TECHNIQUE: Transaxial images were obtained from the dome of the diaphragm to the symphysis pubis with oral contrast. 100 IV/Oral Isovue 370 was administered. Sagittal and coronal images were reconstructed. Individualized dose optimization techniques were used for this CT. COMPARISON: CT abdomen and pelvis 05/28/2018. FINDINGS: The visualized lung bases are unremarkable. The visualized portions of the heart are within normal limits. Normal liver. Normal gallbladder and extrahepatic biliary system. Normal spleen. Normal pancreas. Normal bilateral adrenal glands. Normal right kidney. Normal left kidney. Normal visualized stomach. Normal small intestine. There is diffuse constipation. There are regions of collapsed large bowel, limiting evaluation for colonic wall thickening. There is fecalization in the distal and terminal ileum. There is non-visualization of the appendix. Normal abdominal aorta. Normal inferior vena cava. Normal retroperitoneum. Normal urinary bladder. Normal abdominal wall. Normal osseous structures. CT/Abdomen/Pelvis WITH Contrast IMPRESSION: Diffuse constipation and fecalization in the distal and terminal ileum suggests bowel stasis. There are regions of collapsed large bowel limiting evaluation for colonic wall thickening. No bowel obstruction. Electronically Signed: Jorge Alberto Rahman, at 16:24 EDT Tel , Service support ,
[2018-06-16] MEDS: proMETHazine 25 MG/ML Syringe 12.5 MG IV (13:57)
[2018-06-16] MEDS: 0.9% Normal Saline 1,000 ML 1000 ML IV (13:57)
[2018-06-16 14:12] LABS: Absolute Neutrophil Count 13.2 X10^3/uL (2.0-7.7); Basophil# 0.02 X10^3/uL; Basophil% 0.1 % (0-1); Eosinophil# 0.05 X10^3/uL; Eosinophils% 0.3 % (0-5); Hematocrit 45.9 % (40-54); Hemoglobin 15.4 g/dl (13.0-16.5); Lymphocyte % 5.9 % (19-41); Mean Corp Hgb Conc 33.6 g/gl (32-36); Mean Corpuscular Hgb 30.3 pg (27.0-32.0); Mean Corpuscular Volume 90.2 fL (80-94); Mean Platelet Vol. 11.1 fl (6.2-12.0); Monocyte% 7.2 % (0-10); Neutrophil # 13.16 X10^3/uL (2.7-7.7); Neutrophil % 86.2 % (47-70); Platelet Count 232 K/mm3 (150-450); RBC Distribution Width CV 14.5 % (11.6-14.6); RBC Distribution Width SD 47.6 fl (35.1-43.9); Red Blood Count 5.09 M/mm3 (4.6-6.2); White Blood Count 15.3 K/mm3 (4.4-11.0)
[2018-06-16 14:15] LABS: POSITIVE COUNT NO; POSITIVE DIFFERENTIAL NO; POSITIVE MORPHOLOGY NO
[2018-06-16 14:27] LABS: AST(SGOT) 27 U/L (15-37); Alanine Aminotransfer ALT/SGPT 49 U/L (16-61); Albumin, Serum 3.9 g/dL (3.2-5.0); Alkaline Phosphatase 90 U/L (45-117); Anion Gap 4 (5-15); BUN 23 mg/dL (7-18); BUN/Creat Ratio 21.5 RATIO (10-20); Calcium,Total 8.8 mg/dL (8.5-10.1); Chloride 104 mmol/L (98-107); Creatinine, Serum 1.07 mg/dL (0.70-1.30); EST Glomerular Filtration Rate 87 mL/min (>60); Est Glom Filt Rate - Afr Amer 105 mL/min (>60); Glucose 115 mg/dL (74-106); Lipase 48 U/L (73-393); Potassium 4.1 mmol/L (3.5-5.1); Protein, Total 7.9 g/dL (6.4-8.2); Sodium Level 136 mmol/L (136-145)
--- NOTE | 2018-06-16 15:56 | ED.VISSUMM ---
- ER Visit Summary Date of Service: 06/16/18 Chief Complaint: Abdominal pain and vomiting History of Present Illness: The patient is a 28 M who presents the emergency department with abdominal pain and vomiting. She tells me that he has had several visits for this this year. In March he was seen and noted to have a short segment of colitis of the transverse colon. The end of May she was seen on CT colitis was again noted of the transverse ascending and descending colon. He was on antibiotics and later changed to prednisone. He followed up with Dr. Alcantar from general surgery as an outpatient and is scheduled to have colonoscopy beginning of July. He states that his steroids are almost over and his symptoms are returning. He states that he is constipated but does state that he had a bowel movement this morning. He notes that he is a longtime marijuana user of about 15-20 years. He denies any prior abdominal surgeries. Mom denies any familial history of ulcerative colitis or Crohn's disease. Physical Examination: Afebrile vital signs are stable Gen: Well-nourished well-developed Head: Normocephalic atraumatic Eyes: Perrl EOMI ENT: TMs clear no rhinorrhea moist mucous membranes Neck: Supple no lymphadenopathy no JVD nontender CVS: Regular rate rhythm no murmurs normal S1-S2 Respiratory: No distress clear to auscultation bilaterally chest nontender Abdomen: Soft tender to palpation left upper quadrant in the epigastric region nondistended normal bowel sounds no masses Back: Nontender Extremity: Nontender no edema Skin: Normal color no rash Neuro: alert orientated ?3 CN II-XII intact normal strength sensation reflexes gait cerebellar Psych: Normal affect normal mood Test Results: White count is elevated at 15. BUN 23 with creatinine 1.07. Total bili 1.[address] of the pelvis was obtained. Emergency Department Course and Treatment: Patient received IV fluids and Phenergan.This demonstrates diffuse constipation if equalization in the distal and terminal ileum. I am going to write the patient to have magnesium citrate. I will also write for Phenergan. I encouraged him to follow-up. Impression: 1. Acute abdominal pain 2. Vomiting 3. Constipation This note was generated with [facility] dictation software. It may contain incorrect words, spelling, and punctuation that were not noted in review of the chart prior to signing ED Disposition - Plan for ED Patient: Disposition: Home or Assisted Living Instructions: Ileus Prescriptions: proMETHazine tablet [Phenergan] 25 mg PO Q6H PRN PRN #20 tab PRN Reason: Nausea Magnesium Citrate [Citrate Of Magnesia] 300 ml PO X1 #3 bottle Referrals: Mynor Alcantar MD [STAFF PHYSICIAN] - Keep Margarita appointment Godwin Epps MD [NON-STAFF] - (for gastroenterology)
[2018-06-16 17:02] VITALS: BP 131/88; PULSE 65; RESP 18; O2SAT 100
== END 2018-06-16 17:03 | disposition home or self-care (01) ==
PROVIDERS: Emergency Provider Emergency Medicine
DX: K59.00 Constipation, unspecified (principal); R10.12 Left upper quadrant pain; R10.13 Epigastric pain; R11.10 Vomiting, unspecified; F12.90 Cannabis use, unspecified, uncomplicated; Z72.0 Tobacco use
CPT/HCPCS: 74177; 80053; 83690; 85025; 96361; 96374; 99284; J7030; Q9967; A4216

== ENCOUNTER 2018-07-01 06:41 | Day surgery (SDC) | payer SELFPAY ==
[2018-06-11 13:05] VITALS: BMI 20.9
[2018-07-01] VITALS (7 sets, daily range): BP systolic 101–122; BP diastolic 61–76; PULSE 55–67; RESP 16–18; TEMP 36.3–37.3; O2SAT 95–100; BMI 21.9
--- NOTE | 2018-07-01 08:00 | COLBX_PTH ---
PATIENT: MONTEZ HOWARD LOC: EN U#:[id number] AGE/SX: 28/M ROOM: RE07/01/[address]: Dr. Mynor Alcantar MD : 1990 BED: DIS: 07/01/2018 SPEC #: [id number] RECD: 07/01/18 10:26 STATUS: VIVIENNE SAMIR #: [id number] LOLA: 07/01/18 08:[address]: yMnor Alcantar DEPT: SURGICAL PATHOLOGY RECD BY: Angel Nazario ENTERED: 07/01/18 11:38 SP TYPE: COLON BX OTHR DR: No Primary Care Phys Tissues: A - COLON BIOPSY B - Ileum, NOS C - Sigmoid colon biopsy Procedures: Surgery Specimen Level IV HEADER OPERATION: Colonoscopy (MAC) PRE-OP DIAGNOSIS: Colitis TISSUE SUBMITTED: A. Random biopsy, B. Terminal ileum biopsy, C. Sigmoid polyp biopsy MICROSCOPIC DIAGNOSIS A. Colon, random biopsy: Fragments of colonic mucosa, no pathologic diagnosis. B. Terminal ileum, biopsy: Fragments of small intestinal mucosa, no pathologic diagnosis. C. Sigmoid polyp, biopsy: Fragments of colonic mucosa with focal hyperplastic changes. MAURA:avis 07/02/18 MICROSCOPIC DESCRIPTION Slides are reviewed. GROSS DESCRIPTION A - Received in fixative is one container labeled with the patient's name and designated random biopsy. The specimen consists of multiple irregular fragments of light ching soft tissue that in aggregate measure 1.5 x 0.8 x 0.1 cm. The specimen is totally submitted in one cassette. B - Received in fixative is one container labeled with the patient's name and designated terminal ileum biopsy. The specimen consists of two irregular fragments of light ching soft tissue that in aggregate measure 0.6 x 0.3 x 0.1 cm. The specimen is totally submitted in one cassette. C - Received in fixative is one container labeled with the patient's name and designated sigmoid polyp biopsy. The specimen consists of multiple irregular fragments of light ching soft tissue that in aggregate measure 1.5 x 0.4 x 0.1 cm. The specimen is totally submitted in one cassette. / MAURA:avis 07/01/18 TC:5 CPT: 95221 x3
--- NOTE | 2018-07-01 08:04 | PCM.HP.BLA ---
Problem List (1) Colitis Status: Acute History and Physical Date of Admission: 07/01/18 MR#: [id number] Acct: [id number] Name: MONTEZ HOWARD Rep #: [id number] : 1990 Provider: Mynor Alcantar MD Age/Sex: 28/M Location: [facility] Status: Signed Intake Vital Signs 06/11/18 Body Mass Index (BMI) 20.9 06/11/18 Height 6 ft 06/11/18 Weight: 155 lb 06/11/18 Body Mass Index (BMI) 20.9 06/11/18 Blood Pressure 114/67 06/11/18 Blood Pressure Location Rt brachial 06/11/18 Blood Pressure Position Sitting 06/11/18 Respiratory Rate 14 06/11/18 Pulse Rate 73 06/11/18 Pulse Source Monitor 06/11/18 Temperature 98.5 F 06/11/18 Temperature Source Oral 06/11/18 Pulse Ox 99 06/11/18 Oxygen Delivery Method room air Intake Visit Reasons: ER F/U 05/28 Colitis Metal Buffer Required: No Is patient in pain?: No Allergies No Known Allergies Allergy (Verified 06/16/18 13:05) Medications Prednisone 10 mg PO DAILY #63 tab 05/30/18 [Rx Confirmed 06/11/18] Magnesium Citrate [Citrate Of Magnesia] 300 ml PO X1 #3 bottle 06/16/18 [Rx] proMETHazine tablet [Phenergan] 25 mg PO Q6H PRN PRN #20 tab 06/16/18 [Rx] PFSH Medical History Nausea & vomiting (Acute) Depression (Acute) Anxiety (Acute) Surgical History No significant past surgical history (Acute) Family History Mother Hypertension High cholesterol Father CVA (cerebral vascular accident) Social History Smoking Status: Current every day smoker second hand exposure: Yes alcohol intake: never substance use type: marijuana caffeine: Yes frequency: does not exercise HPI HPI HPI: MONTEZ HOWARD, is a 28 M who presents to the office today for HPI HPI HPI: MONTEZ HOWARD is a 28 M who presents to the office today for evaluation for colitis. Patient was seen in [facility]'s emergency department on 05/30/2018. At that time that was his third visit to the emergency department he had been complaining of nausea and vomiting CAT scan showed colitis and he was started on Cipro and Flagyl. Since then the patient has also been started on a tapered dose of prednisone. He is still complaining of nausea and occasional vomiting. But he has improved since being seen in the emergency department. ROS General General: No weight change, appetite, fatigue, colon cancer, breast cancer or weakness HEENT HEENT: No difficulty swallowing, eye injury, eye surgery, swollen glands or hoarseness Endo Endocrine: No thyroid disease, diabetes mellitus, thyroid cancer, Hair loss, heat intolerance or cold intolerance Skin Skin: No rash or changing moles Musc Musculoskeletal: No back problems, arthritis, rheumatoid arthritis, gout or joint pain Cardio Cardiovascular: No murmur, pacemaker, heart disease, atrial fibrillation, high blood pressure, heart attack, heart stent, palpitations, shortness of breat with exertion or chest pain Psych Psychiatric: Yes depression and anxiety; no hearing voices Resp Respiratory: No shortness of breath, No sleep apnea, Yes cough, No COPD, No asthma, No emphysema, No wheezing Gastro Gastrointestinal: No abdominal pain, No nausea or vomiting, No diarrhea, No constipation, No blood in stool, No acid reflux, No hemorrhoids, No ulcers, No gallbladder problem, No black,tarry stools Juve Hematologic: No blood thinners, No blood disorders, No bleeding, No anemia, No blood clots Neuro Neurologic: No system reviewed and no additional complaints, except as docu, No as per HPI, No abnormal walking, No abnormal hearing, No abnormal movements, No abnormal speech, No behavioral changes, No burning sensations, No confusion, No seizure-like activity, No unsteadiness, No dizziness, No localized weakness, No frequent falls, No headache(s), No lack of coordination, No loss of vision, No memory loss, No numbness, No other visual disturbances, No radiating pain, No restless legs, No sensory deficit, No fainting, No tingling, No tremor(s), No weakness, No other Exam Const General: no acute distress, well developed, well hydrated Orientation: oriented to person, oriented to place, oriented to time [facility] Head: normocephalic, atraumatic Ears: external ears normal Mouth: moist mucous membranes Eyes Sclera: sclerae normal Pupils: normal by confrontation Neck Neck: no lymphadenopathy noted Neck mass: No Thyroid: thyroid normal, symmetrical Chest Chest palpation & inspection: normal inspection of the chest Resp Effort & Inspection: normal respiratory effort Auscultation: clear to auscultation bilaterally Percussion: percussion normal Cardio Rate: regular rate Rhythm: regular rhythm Heart Sounds: no murmurs GI Palpation: soft, no hepatosplenomegaly, no masses, nontender Rectal Exam: other Other: Rectal exam deferred. Extrem General: normal to inspection, no clubbing, cyanosis or edema Assessment & Plan Problems 1. Colitis K52.9 Plan I have discussed the above with the patient. I have offered the patient colonoscopy for evaluation. I have explained the risks/benefits of the procedure and described the procedure. I have discussed the risks with the patient, including but not limited to: infection, bleeding, perforation of the GI tract requiring emergency surgery, inability to complete the procedure, injury to any internal organs, complications of anesthesia, etc. - the patient understands and agrees to proceed. I have answered all the patient's questions to the patient's satisfaction and the patient has no further questions. The patient has been given instructions for the colon cleansing preparation. Orders Orders: Colonoscopy 06/11/18 R10.9, R11.2 Coding Level of Care Code Off vis,new,level 3 Diagnoses Colitis K52.9 06/23/18 0806 <Electronically signed by Mynor Alcantar MD> Date Mynor Alcantar MD Cosigner Signature: Date (if applicable) CC: ~ I have re-examined the patient. There are no clinical changes since date of exam.
--- NOTE | 2018-07-01 08:42 | OP.ENDO_ITS ---
07/01/2018 No Primary Care Physician Re : Colonoscopy procedure for Benitez Milligan Dear Care Physician This procedure was performed on Sunday, July 01, 2018. My impressions and recommendations are as follows: Impressions : - Congested mucosa in the terminal ileum. Biopsied. - One 3 mm polyp in the distal sigmoid colon, removed with a jumbo cold forceps. Resected and retrieved. - Congested mucosa in the recto-sigmoid colon. - Non-bleeding internal hemorrhoids. No specimens collected. - The examination was otherwise normal. - Several biopsies were obtained in the entire colon. Recommendations : - Discharge patient to home. - Resume previous diet. - Continue present medications. - Await pathology results. - Repeat colonoscopy (date not yet determined) for surveillance based on pathology results. - Return to my office in 1 week. My findings are described in the full procedure note, which is enclosed. If I can be of further assistance, please feel free to contact me at Doctor phone number(s): , Fax: [phone], Work: . Sincerely, MD Mynor Bacon MD 07/01/2018 8:42:21 AM This report has been signed electronically.
== END 2018-07-01 09:11 | disposition home or self-care (01) ==
LOC: EN 06:42 → AC 06:43
PROVIDERS: Referring Provider Surgery; Visit Provider Surgery
PROC: 0DJD8ZZ Inspection of Lower Intestinal Tract, Via Natural or Artificial Opening Endoscopic (ICD-10-PCS; CPT 45378; principal; 2018-07-01 07:55)
DX: K52.9 Noninfective gastroenteritis and colitis, unspecified (principal); D12.5 Benign neoplasm of sigmoid colon; K63.5 Polyp of colon; K63.89 Other specified diseases of intestine; K64.8 Other hemorrhoids; R93.3 Abnormal findings on diagnostic imaging of other parts of digestive tract; F17.200 Nicotine dependence, unspecified, uncomplicated
CPT/HCPCS: 45380; 88305; J7120; J1610; J2405

== ENCOUNTER 2018-08-02 13:00 | Emergency (ER) | payer SELFPAY ==
[2018-07-01 07:00] VITALS: BMI 21.9
[2018-08-02 13:00] VITALS: BP 154/104
[2018-08-02 13:01] VITALS: BP 154/104; PULSE 75; RESP 18; TEMP 36.4; O2SAT 100; BMI 22.5
--- NOTE | 2018-08-02 13:24 | ED.VIS.GEN ---
History of Present Illness Chief Complaint: Nausea/Vomiting Informant: Patient Onset: Yesterday Context: Sudden Onset Timing: Continuous, Waxes and wanes Quality: Pain Location: Diffuse abdominal pain Current Severity: Mild Maximum Severity: Severe Worsened by: vomiting Relieved by: Nothing Associated Symptoms: No constitutional symptoms Narrative: Patient is 28-year-old male who states he has colitis. He had similar presentation when diagnosed colitis. Last ER presentation was June. CT at that time revealed constipation. Patient had recent colonoscopy performed by Dr. Alcantar which was unremarkable. Patient denies fever, chills night sweats. He does report nausea vomiting. States he is vomited numerous times since midnight. He does command of thirst, dry mouth and orthostatic symptoms. He does report constipation. He denies dysuria, frequency, urgency or hematuria. He states he had macaroni and cheese for dinner. He does not recall what he had for lunch. Did not have breakfast. Based on what he reports eating, fiber content is low. - Past Medical History (1) Anxiety Status: Acute (2) Colitis Status: Acute (3) Nausea & vomiting Status: Acute (4) No significant past surgical history Status: Acute Past Medical History - Allergies and Home Meds Allergies/Adverse Reactions: Allergies No Known Allergies Allergy (Verified 08/02/18 13:00) Primary Care Physician: Holli Becerra [NON-STAFF] - Care Physician,No Primary [Primary Care Provider] - Prior records reviewed: Yes - Dr. Alcantar's notes Surgical History: - - Recent colonoscopy with multiple biopsies Lives: Spouse/ Significant Other Smoking Status: Heavy Smoker (>10/day) Drugs: None Review of Systems General: Denies: Chills, Fever, Malaise, Subjective, Sweats Eyes: Denies: Visual changes - bilaterally, Blurred Vision - bilaterally ENT: Denies: Bilateral ear pain, Rhinorrhea, Sore throat Cardiovascular: Denies: Chest pain, Palpitations Respiratory: Denies: Dyspnea, Cough, Dyspnea on exertion Gastrointestinal: Reports: Abdominal pain, Nausea, Vomiting, Constipation. Denies: Diarrhea, Melena, Hematochezia Genitourinary: Denies: Dysuria, Hematuria, Frequency Musculoskeletal: Denies: Myalgias, Arthralgias, Neck pain, Back pain, Swelling, Extremity Pain, -, - Neurological: Denies: Headache Hematologic: Denies: Easy bruising, Easy bleeding Allergy: Denies: Uticaria, Swelling of the mouth Physical Exam Vital Signs/Narrative: Vital Signs Temp Pulse Resp BP Pulse Ox 08/02/18 13:01 97.6 F L 75 18 154/104 H 100 08/02/18 13:00 154/104 H Inital Vital Signs reviewed: Yes General: Well nourished, Well developed, No Acute Distress - Patient looks uncomfortable. Head: Normocephalic, Atraumatic Eyes: Perrl, EOMI. Negative for: Pale conjunctiva, Scleral icterus, - ENT: No rhinorrhea, TM's clear, Dry mucous membranes. Negative for: Nasal congestion, Sinus tenderness Neck: Supple, Nontender, No lymphadenopathy, No JVD Cardiovascular: Regular rate, Regular rhythm, No murmurs, Normal S1, Normal S2 Respiratory: No distress, CTA bilaterally, Chest nontender Abdomen: Soft, Nontender, Nondistended, Normal bowel sounds, No masses Rectal: Deferred Back: Nontender, Normal Inspection Extremities: Nontender, No edema Skin: Normal color, No rash Neurological: Alert, Oriented x3, Cranial nerves II-XII grossly intact, Normal Strength, Normal Sensation Psychological: Normal affect, Normal Mood Diagnostic/Tx/Re-eval Laboratory Results 08/02/18 08/02/18 13:30 13:30 WBC 14.8 H RBC 5.11 Hgb 15.6 Hct 44.6 MCV 87.3 MCH 30.5 MCHC 35.0 RDW 13.2 RDW Differential 42.2 Plt Count 274 MPV 11.4 Immature Gran % (Auto) 0.300 Neut % (Auto) 80.1 H Lymph % (Auto) 9.9 L Whiteside % (Auto) 7.6 Eos % (Auto) 2.0 Baso % (Auto) 0.1 Absolute Neuts (auto) 11.9 H Absolute Lymphs (auto) 1.46 Total Counted Not Reportable Sodium 142 Potassium 3.5 Chloride 106 Carbon Dioxide 28.0 Anion Gap 8 BUN 11 Creatinine 1.16 Estim Creat Clear Calc 100.07 Est GFR (MDRD) Af Amer 96 Est GFR (MDRD) Non-Af 79 BUN/Creatinine Ratio 9.5 L Glucose 125 H Calcium 9.1 - Medical Decision Making Since patient reports similar presentation to prior ER visit and only finding was significant fecal stasis and his abdominal exam is benign will obtain basic blood work. IV was established he received 1 L of normal saline and 4 mg of Zofran for his nausea and vomiting. Will then administer Bentyl. Differential diagnosis is constipation, abdominal pain unknown etiology, and colitis, Patient vomited in spite of 4 mg of Zofran. He was given IV Reglan. He was treated with Bentyl for his abdominal pain. Since he is afebrile and has a benign exam believe that the leukocytosis is secondary to the nausea and vomiting and pain. Since this is similar to presentation in June and it was found that he had fecal stasis and his most recent colonoscopy was unremarkable, it is my professional medical opinion that repeat imaging is not indicated at this time. Nurse states last time he vomited was on all fours. I went in to reevaluate him at 1515 he is actively vomiting appears pale and slightly diaphoretic. Will obtain CT of the abdomen and pelvis with p.o. and IV contrast. ED Disposition - Plan for ED Patient: Diagnosis: Abdominal pain with vomiting, Constipation Instructions: ED Nausea Vomiting Referrals: Care Physician,Annelise Primary [Primary Care Provider] - Holli Becerra [NON-STAFF] - Additional Instructions: You need to increase the fiber in your diet. Recommend Metamucil 3 times a day for the next 1 week then twice a day.
[2018-08-02] MEDS: 0.9% Normal Saline 1,000 ML 1000 ML IV (13:35)
[2018-08-02] MEDS: Ondansetron 4 MG/2 ML Vial IV (13:35)
[2018-08-02 13:43] LABS: Absolute Lymphocyte Count 1.46 X10^3/ul (0.83-4.51); Absolute Neutrophil Count 11.9 X10^3/uL (2.0-7.7); Basophil# 0.01 X10^3/uL; Basophil% 0.1 % (0-1); Eosinophil# 0.29 X10^3/uL; Hematocrit 44.6 % (40-54); Hemoglobin 15.6 g/dl (13.0-16.5); Lymphocyte # 1.46 X10^3/ul (4.0); Lymphocyte % 9.9 % (19-41); Mean Corpuscular Hgb 30.5 pg (27.0-32.0); Mean Corpuscular Volume 87.3 fL (80-94); Mean Platelet Vol. 11.4 fl (6.2-12.0); Monocyte# 1.13 X10^3/uL; Monocyte% 7.6 % (0-10); Neutrophil # 11.89 X10^3/uL (2.7-7.7); Neutrophil % 80.1 % (47-70); Platelet Count 274 K/mm3 (150-450); RBC Distribution Width CV 13.2 % (11.6-14.6); RBC Distribution Width SD 42.2 fl (35.1-43.9); Red Blood Count 5.11 M/mm3 (4.6-6.2); White Blood Count 14.8 K/mm3 (4.4-11.0)
[2018-08-02 13:47] LABS: POSITIVE COUNT NO; POSITIVE DIFFERENTIAL NO; POSITIVE MORPHOLOGY NO
[2018-08-02 13:53] LABS: Anion Gap 8 (5-15); BUN 11 mg/dL (7-18); BUN/Creat Ratio 9.5 RATIO (10-20); Calcium,Total 9.1 mg/dL (8.5-10.1); Chloride 106 mmol/L (98-107); Creatinine, Serum 1.16 mg/dL (0.70-1.30); EST Glomerular Filtration Rate 79 mL/min (>60); Est Glom Filt Rate - Afr Amer 96 mL/min (>60); Estimated Creatinine Clearance 100.07 ml/min; Glucose 125 mg/dL (74-106); Potassium 3.5 mmol/L (3.5-5.1); Sodium Level 142 mmol/L (136-145)
[2018-08-02] MEDS: Ondansetron ODT 4 MG Tablet PO (14:12)
[2018-08-02] MEDS: Metoclopramide 10 MG/2 ML Vial 5 MG IV (14:47)
--- NOTE | 2018-08-02 15:17 | CT_ITS ---
STUDY: CT ABDOMEN AND PELVIS WITH CONTRAST REASON FOR EXAM: Male, 28 years old. Pain and nausea with vomiting RADIATION DOSAGE (If Supplied By Facility): CTDIvol = ( 11.80 ) mGy, DLP = ( 557.34 ) mGycm TECHNIQUE: Transaxial images were obtained from the dome of the diaphragm to the symphysis pubis with oral contrast. 100ML IV/Oral Isovue 300 was administered. Sagittal and coronal images were reconstructed. Individualized dose optimization techniques were used for this CT. COMPARISON: None. FINDINGS: The visualized lung bases are unremarkable. The visualized portions of the heart are within normal limits. Normal liver. Normal gallbladder and extrahepatic biliary system. Normal spleen. Normal pancreas. Normal bilateral adrenal glands. Normal right kidney. Normal left kidney. Normal visualized stomach. No dilated loops of small bowel. There is mild wall thickening of the distal ileum extending into the proximal colon with faint amount of pericolonic stranding. Colonic wall thickening extends into the transverse and left colon, however, the colon is not well distended, limiting visualization. There is non-visualization of the appendix. Normal abdominal aorta. Normal inferior vena cava. Normal retroperitoneum. Normal urinary bladder. Normal abdominal wall. Normal osseous structures. CT/Abdomen/Pelvis WITH Contrast IMPRESSION: 1. Distal ileum and colonic wall thickening with pericolonic (right) stranding suggesting infectious or inflammatory ileocolitis. Trace free fluid in the dependent portion of pelvis. 2. No bowel obstruction or pneumoperitoneum. Electronically Signed: Patrice Harrison MD at 17:20 EDT , Service support ,
[2018-08-02 15:24] VITALS: BP 151/92; PULSE 66; RESP 18; O2SAT 100
[2018-08-02] MEDS: proMETHazine 25 MG/ML Syringe 6.25 MG IV ×2 (16:26→18:18)
[2018-08-02 17:15] VITALS: BP 115/53; PULSE 60; RESP 18; O2SAT 97
--- NOTE | 2018-08-02 18:06 | ED.DEP ---
ED Disposition - Plan for ED Patient: Diagnosis: Abdominal pain with vomiting, Constipation Prescriptions: proMETHazine tablet [Phenergan] 25 mg PO Q6H PRN PRN #10 tablet PRN Reason: Nausea metroNIDAZOLE [Flagyl] 500 mg PO Q8H #21 tablet Prednisone 10 mg PO DAILY #63 tablet Ciprofloxacin [Cipro] 500 mg PO BID #14 tablet Referrals: Holli Becerra [NON-STAFF] - Godwin Epps MD [NON-STAFF] - Additional Instructions: You need to increase the fiber in your diet. Recommend Metamucil 3 times a day for the next 1 week then twice a day.
== END 2018-08-02 18:50 | disposition home or self-care (01) ==
PROVIDERS: Emergency Provider Emergency Medicine
DX: R11.2 Nausea with vomiting, unspecified (principal); R10.84 Generalized abdominal pain; K59.00 Constipation, unspecified; F17.200 Nicotine dependence, unspecified, uncomplicated
CPT/HCPCS: 74177; 80048; 85025; 96361; 96374; 96375; 96376; 99285; J7030; Q9967; A4216; J2405

== ENCOUNTER → 2020-11-17 12:07 | Outpatient (CLI) | payer MEDICAID, SELFPAY ==
[2020-11-17 14:37] LABS: Erythrocyte Sedimentation Rate 3 mm/hr (0-20)
[2020-11-17 15:15] LABS: CRP 7.63 mg/L (0.0-3.0)
[2020-11-20 16:08] LABS: Endomysial Antibody IgA Negative (Negative)
[2020-11-21 18:29] LABS: Immunoglobulin A 271 mg/dL (90-386); t-Transglutaminase IgA <2 U/mL (0-3)
== END ==
PROVIDERS: Referring Provider Internal Medicine Gastroenterology; Visit Provider Internal Medicine Gastroenterology
DX: K52.9 Noninfective gastroenteritis and colitis, unspecified (principal)
CPT/HCPCS: 36415; 82784; 83516; 85652; 86140; 86255

== ENCOUNTER 2020-11-28 12:24 | Day surgery (SDC) | payer MEDICAID, SELFPAY ==
[2020-11-28] VITALS (7 sets, daily range): BP systolic 95–123; BP diastolic 52–76; PULSE 52–62; RESP 16; TEMP 36.1–36.7; O2SAT 99–100; BMI 23.5
[2020-11-28] MEDS: Lactated Ringers 1,000 ML 100 ML IV (13:13)
--- NOTE | 2020-11-28 13:30 | IMM_PTH ---
PATIENT: MONTEZ HOWARD LOC: [facility] U#:[id number] AGE/SX: 30/M ROOM: RE11/28/[address]: Dr. Quique Mack DO : 1990 BED: DIS: 11/28/2020 SPEC #: [id number] RECD: 11/29/20 12:12 STATUS: VIVIENNE RESean #: [id number] LOLA: 11/28/20 13:[address]: Quique Mack DEPT: IMMUNOHISTOCHEMISTRY RECD BY: May Beckett ENTERED: 11/29/20 12:12 SP TYPE: IMMUNO OT DR: No Primary Care Phys Tissues: A - Stomach, NOS Procedures: H Pylori (initial) PHYSICIAN & INSTITUTION [place] [phone] SPECIMEN INFORMATION: Tissue Source: A ? Antral biopsy Clinical Info: Colitis Specimen Number: [id number] CPT code: 10946 METHODOLOGY: Deparaffinized sections of prefer/formalin-fixed tissue or PAP/DQ stained slides are incubated with monoclonal/polyclonal antibodies/oligonucleotide probes. Localization is made via biotin free immunoperoxidase method. Appropriate controls are performed and reacted as expected. Results on target cell population are indicated in the following table: RESULTS: ANTIBODY / CLONE RESULT Block A H Pylori (polyclonal) negative These tests were developed and their performance characteristics determined by [facility]. They may not have been cleared or approved by the U.S. Food and Drug Administration. The FDA has determined that such clearance or approval is not necessary. INTERPRETATION: A. Antral biopsy: Negative for Helicobacter pylori organisms. AM:avis 11/30/2020
--- NOTE | 2020-11-28 13:30 | COLBX_PTH ---
PATIENT: MONTEZ HOWARD LOC: EN U#:[id number] AGE/SX: 30/M ROOM: RE11/28/[address]: Dr. Quique Mack DO : 1990 BED: DIS: 11/28/2020 SPEC #: [id number] RECD: 11/28/20 14:35 STATUS: VIVIENNE SAMIR #: [id number] LOLA: 11/28/20 13:[address]: Quique Mack DEPT: SURGICAL PATHOLOGY RECD BY: Angel Nazario ENTERED: 11/29/20 12:06 SP TYPE: COLON BX OTHR DR: Annelise Primary Care Phys Tissues: A - Gastric mucous membrane B - Duodenum, NOS C - Esophageal mucous membrane D - Ileum, NOS E - COLON BIOPSY Procedures: Special Stain Group II Surgery Specimen Level IV Alcian Blue/PAS (control) HEADER OPERATION: Colonoscopy, EGD ([facility] [place]) PRE-OP DIAGNOSIS: Colitis TISSUE SUBMITTED: A ? Antral biopsy for H. pylori and pathology, B ? Duodenal biopsy, C ? Esophageal biopsy, D ? Terminal ileum biopsy, E ? Random colon biopsies MICROSCOPIC DIAGNOSIS A. Gastric antrum, biopsy: Mild chronic gastritis. See comment. B. Duodenum, biopsy: No pathologic change. C. Esophagus, biopsy: Gastroesophageal junctional mucosa with mild chronic inflammation. No evidence of goblet cell metaplasia. See comment. D. Terminal ileum, biopsy: No pathologic change. E. Colon, random biopsy: No pathologic change. AM:avis 11/30/2020 COMMENT A. The results of immunohistochemistry for Helicobacter pylori will be reported separately ([id number]). C. Alcian blue/PAS stain with matched control supports the above diagnosis. MICROSCOPIC DESCRIPTION Slides are reviewed. GROSS DESCRIPTION A - Received in fixative is one container labeled with the patient's name and designated antral biopsy. The specimen consists of multiple irregular fragments of light ching soft tissue that in aggregate measure 1.5 x 0.3 x 0.1 cm. The specimen is totally submitted in one cassette. B - Received in fixative is one container labeled with the patient's name and designated duodenal biopsy. The specimen consists of multiple irregular fragments of light ching soft tissue that in aggregate measure 1 x 0.6 x 0.1 cm. The specimen is totally submitted in one cassette. C - Received in fixative is one container labeled with the patient's name and designated esophagus biopsy. The specimen consists of multiple irregular fragments of light ching soft tissue that in aggregate measure 0.6 x 0.3 x 0.1 cm. The specimen is totally submitted in one cassette. D - Received in fixative is one container labeled with the patient's name and designated terminal ileum biopsy. The specimen consists of multiple irregular fragments of light ching soft tissue that in aggregate measure 0.8 x 0.5 x 0.1 cm. The specimen is totally submitted in one cassette. E - Received in fixative is one container labeled with the patient's name and designated random colon biopsy. The specimen consists of multiple irregular fragments of light ching soft tissue that in aggregate measure 2 x 1 x 0.1 cm. The specimen is totally submitted in one cassette. / AM:avis 11/29/20 TC:3 CPT: 42076 x5, 50838
--- NOTE | 2020-11-28 13:37 | HP.PCM_ITS ---
HPI - General HPI Narrative MONTEZ HOWARD, is a 30 M who presentsHPI Chief Complaint: Colotis, establish care Details: MONTEZ HOWARD, is a 30 M who presents to the office today is here to establish care for history of colitis. Last episode was two months ago, lasting for about a month. Symptoms include: Has episodes of constipation with nausea and vomiting (no blood noted), lower abdominal pain. He does experience mild nausea in the mornings periodically; about three times in the last couple of weeks. If he gets up and starts moving then the feeling goes away. Hot showers provide relief but nothing else has helped. Has been avoiding fried foods since last episode and thinks this might be helping, but did eat fried chicken sandwich without issue. Colonoscopy performed in the last two years with two polyps removed which were benign. Upper endoscopy has not been done yet. ED visits result in prescription of antibiotics and prednisone. Prednisone helped the most. CT abdomen pelvis shows distal ileum and colonic wall thickening with pericolonic (right) stranding suggesting infectious or inflammatory ileocolitis. No bowel obstruction or pneumoperitoneum. Discussed with Dr. Alcantar. He recommends follow-up with GI. Family states that he improved after having antibiotics and steroids in the past. He was given a prescription for Phenergan, Cipro, Flagyl, prednisone. Advised to follow-up with Dr. Epps. Advised return to ED if worsening complaints. ROS Const Constitutional: No anorexia, fatigue, fever(s), weight change or sleep problems Eyes Eyes: No change in vision ENT ENT: No abnormal hearing, difficulty swallowing, mouth lesions, tongue swelling or throat swelling Resp Respiratory: No cough or shortness of breath Cardio Cardiology: No chest pain at rest, chest pain with exertion, shortness of breath or dyspnea on exertion Gastro GI: Positive for diarrhea; No difficulty swallowing Genitourinary Male: No difficulty urinating or burning urination Musc Musculoskeletal: No joint pain, joint swelling, muscle weakness or decreased muscle mass Skin Skin: No hair loss in leg, yellowing of the eye, itchy eyes, rash, skin ulcer or skin swelling Neuro Neurology: No abnormal hearing, abnormal movements, confusion, unsteady gait/balance or memory loss Psych Psychiatric: No anxiety, No confusion and No memory loss Endo Endocrine: No fatigue or weight change Aller/Imm Allergy/Immunologic: No itchy eyes, throat swelling or tongue swelling Juve/Lymp Hematologic/Lymphatic: No easy bleeding, easy bruising or enlarged lymph nodes Exam Const General: cooperative and comfortable Nutritional Appearance: average body habitus and well nourished [facility] Head: normal to inspection Ears: hearing grossly normal bilaterally Nose: external nose normal Face and sinus: normal facial exam Mouth: oral mucosae normal Throat: posterior oropharynx normal Eyes General: appearance normal, both eyes and all related structures Neck Neck: normal visual inspection Chest Chest palpation & inspection: normal inspection of the chest and normal palpation of entire chest wall Resp Effort & Inspection: normal respiratory effort Auscultation: Bilateral: Clear to Auscultation Cardio Palpation: normal PMI Rate: regular rate Rhythm: regular rhythm GI Inspection: normal to inspection Auscultation: normal bowel sounds Percussion: normal to percussion Palpation: no hepatosplenomegaly Skin General: no rashes or lesions noted Neuro General: patient alert Extrem General: normal to inspection Psych Affect: normal affect Quality Reporting Tobacco Screening ([facility]) Smoking Status: Heavy Smoker (>10/day) Assessment and Plan Assessment and Plan (1) Non-specific colitis: Orders: Orders: CRP Today Erythrocyte Sed Rate Today Calprotectin, Stool Today ENTERIC PATHOGEN PANEL STOOL Today Celiac Disease Profile Today Plan - Dr. Lei Friend, DO: I will get biochemical studies including, LDH, ESR, CRP,, amylase lipase, celiac profile. We also get stool studies including C. difficile, enteric pathogens, stool culture and fecal calprotectin. He will have an evaluation of his upper GI tract to look for any signs of peptic ulcer disease, celiac disease or other autoimmune disease. (2) Colitis: Status: Acute Orders: Orders: CRP Today Erythrocyte Sed Rate Today Calprotectin, Stool Today ENTERIC PATHOGEN PANEL STOOL Today Celiac Disease Profile Today Plan - Dr. Lei Friend, DO: He will undergo colonoscopy to the terminal ileum with repeat biopsies due to the abnormal CT scan. He was explained alternatives, risk, benefits including not withstanding bleeding, infection, sepsis, perforation, need for emergency or . He would have an ASA 1. This is an updated H&P from a previous office visit. Nothing is changed since he was seen in office. [facility] Medical History (Updated 11/20/20 @ 12:04 by Cecilia Sherman) Alcohol use Anxiety Depression Marijuana use Nausea & vomiting Smoker Wears glasses Home Medications metronidazole 500 mg PO Q8H #21 tab 08/02/18 [Rx Last Taken Unknown] bisacodyl 5 mg tablet,delayed release 5 mg PO ONCE #4 tab 11/17/20 [Rx Last Taken Unknown] peg 3350-electrolytes 236 gram-22.74 gram-6.74 gram-5.86 gram solution 240 ml PO Q10M #4000 ml 11/17/20 [Rx Last Taken Unknown] Allergy/AdvReac Type Severity Reaction Status Date / Time No Known Allergies Allergy Verified 11/20/20 11:58 Family History Mother Hypertension High cholesterol Father CVA (cerebral vascular accident) Surgical History No significant past surgical history S/P colonoscopy (~07/01/18) Social History Smoking Status: Heavy Smoker (>10/day) second hand exposure: Yes alcohol intake: never substance use type: marijuana caffeine: Yes frequency: does not exercise Vital Signs Vital Signs Vital Signs: 11/28/20 13:08 Temperature 98.1 F Temperature Source Temporal Pulse Rate 62 Respiratory Rate 16 Respiratory Pattern Normal Blood Pressure 115/59 L Blood Pressure Mean 77 Blood Pressure Source Monitor Blood Pressure Position Semi-Fowlers Blood Pressure Location Right Arm Pulse Ox 99 Oxygen Delivery Method Room Air Weight Weight: 173 lb 4.533 oz Body Mass Index (BMI) 23.5
--- NOTE | 2020-11-28 14:29 | OP.EGD_ITS ---
Patient Name: Benitez Milligan Procedure Date: 11/28/2020 1:37 PM Date of : 1990 Age: 30 Procedure: Upper GI endoscopy Indications: Epigastric abdominal pain, Functional Dyspepsia, Heartburn Providers: Quique Mack DO Referring MD: No Primary Care Physician Medicines: Monitored Anesthesia Care Patient Profile: This is a 30 year old male. Refer to note in patient chart for documentation of history and physical. Patient has symptoms. The symptoms first began August. Complications: No immediate complications. Procedure: Pre-Anesthesia Assessment: - Prior to the procedure, a History and Physical was performed, and patient medications and allergies were reviewed. The patient is competent. The risks and benefits of the procedure and the sedation options and risks were discussed with the patient. All questions were answered and informed consent was obtained. Patient identification and proposed procedure were verified by the physician in the pre-procedure area. Mental Status Examination: alert and oriented. Airway Examination: normal oropharyngeal airway and neck mobility. Respiratory Examination: clear to auscultation. CV Examination: normal. Prophylactic Antibiotics: The patient does not require prophylactic antibiotics. Prior Anticoagulants: The patient has taken no previous anticoagulant or antiplatelet agents. ASA Grade Assessment: II - A patient with mild systemic disease. After reviewing the risks and benefits, the patient was deemed in satisfactory condition to undergo the procedure. The anesthesia plan was to use moderate sedation / analgesia (conscious sedation). Immediately prior to administration of medications, the patient was re-assessed for adequacy to receive sedatives. The heart rate, respiratory rate, oxygen saturations, blood pressure, adequacy of pulmonary ventilation, and response to care were monitored throughout the procedure. The physical status of the patient was re-assessed after the procedure. After obtaining informed consent, the endoscope was passed under direct vision. Throughout the procedure, the patient's blood pressure, pulse, and oxygen saturations were monitored continuously. The gastroscope was introduced through the mouth, and advanced to the second part of duodenum. The upper GI endoscopy was accomplished without difficulty. The patient tolerated the procedure well. Moderate Sedation: Moderate (conscious) sedation was administered by the endoscopy nurse and supervised by the endoscopist. The patient's oxygen saturation, heart rate, blood pressure and response to care were monitored. Scope In: 1:58:17 PM Scope Out: 2:03:22 PM Total Procedure Duration Time 0 hours 5 minutes 5 seconds Findings: LA Grade A (one or more mucosal breaks less than 5 mm, not extending between tops of 2 mucosal folds) esophagitis with no bleeding was found. Biopsies were taken with a cold forceps for histology. Verification of patient identification for the specimen was done. Estimated blood loss was minimal. Localized mild inflammation characterized by erythema was found in the stomach. Biopsies were taken with a cold forceps for histology. Verification of patient identification for the specimen was done. Estimated blood loss was minimal. A few localized erosions without bleeding were found in the duodenal bulb. Biopsies were taken with a cold forceps for histology. Verification of patient identification for the specimen was done. Estimated blood loss was minimal. Impression: - LA Grade A reflux esophagitis. Biopsied. - Gastritis. Biopsied. - Duodenal erosions without bleeding. Biopsied. - LA Grade A reflux esophagitis. Biopsied. - Gastritis. Biopsied. - High likelihood of duodenitis. Biopsied. Recommendation: - Discharge patient to home. - Resume previous diet. - Continue present medications. - Await pathology results. - Repeat upper endoscopy in 1 year for surveillance. - Return to GI office in 2 weeks. Procedure Code(s): --- Professional --- 68170, Esophagogastroduodenoscopy, flexible, transoral; with biopsy, single or multiple CPT copyright 2017 [employer]. All rights reserved. The codes documented in this report are preliminary and upon sieve maker review may be revised to meet current compliance requirements. Quique Mack DO 11/28/2020 2:28:42 PM This report has been signed electronically. Number of Addenda: 1 Note Initiated On: 11/28/2020 1:37 PM Addendum Number: 1 Addendum Date: 11/01/2021 4:08:00 PM MAC was used instead of moderate sedation for this patient. Quique Mack DO 11/01/2021 4:08:08 PM This report has been signed electronically.
--- NOTE | 2020-11-28 14:29 | OP.CCLET_ITS ---
11/01/2021 No Primary Care Physician Re : Upper GI endoscopy procedure for Benitez Milligan Dear Care Physician This procedure was performed on Saturday, November 28, 2020. My impressions and recommendations are as follows: Impressions : - LA Grade A reflux esophagitis. Biopsied. - Gastritis. Biopsied. - Duodenal erosions without bleeding. Biopsied. - LA Grade A reflux esophagitis. Biopsied. - Gastritis. Biopsied. - High likelihood of duodenitis. Biopsied. Recommendations : - Discharge patient to home. - Resume previous diet. - Continue present medications. - Await pathology results. - Repeat upper endoscopy in 1 year for surveillance. - Return to GI office in 2 weeks. My findings are described in the full procedure note, which is enclosed. If I can be of further assistance, please feel free to contact me at . Sincerely, Quique Mack, 11/28/2020 2:28:42 PM This report has been signed electronically.
--- NOTE | 2020-11-28 14:32 | OP.CCLET_ITS ---
11/01/2021 No Primary Care Physician Re : Colonoscopy procedure for Benitez Milligan Dear Care Physician This procedure was performed on Saturday, November 28, 2020. My impressions and recommendations are as follows: Impressions : - The entire examined colon is normal. Biopsied. - The examined portion of the ileum was normal. Biopsied. - The entire examined colon is normal. Biopsied. - The examined portion of the ileum was normal. Biopsied. Recommendations : - Discharge patient to home. - Resume previous diet. - Continue present medications. - Await pathology results. - Repeat colonoscopy in 5 years for surveillance based on pathology results. - Return to GI office in 2 weeks. My findings are described in the full procedure note, which is enclosed. If I can be of further assistance, please feel free to contact me at . Sincerely, Quique Mack, 11/28/2020 2:32:18 PM This report has been signed electronically.
--- NOTE | 2020-11-28 14:32 | OP.COLON_ITS ---
Patient Name: Benitez Milligan Procedure Date: 11/28/2020 2:04 PM Date of : 1990 Age: 30 Procedure: Colonoscopy Indications: Chronic diarrhea Providers: Quique Mack DO Referring MD: Annelise Primary Care Physician Medicines: Monitored Anesthesia Care Patient Profile: This is a 30 year old male. Refer to note in patient chart for documentation of history and physical. Patient has symptoms. The symptoms first began August. Last Colonoscopy: none. The patient's first colonoscopy is today. Complications: No immediate complications. Procedure: Pre-Anesthesia Assessment: - Prior to the procedure, a History and Physical was performed, and patient medications and allergies were reviewed. The patient is competent. The risks and benefits of the procedure and the sedation options and risks were discussed with the patient. All questions were answered and informed consent was obtained. Patient identification and proposed procedure were verified by the physician in the pre-procedure area. Mental Status Examination: alert and oriented. Airway Examination: normal oropharyngeal airway and neck mobility. Respiratory Examination: clear to auscultation. CV Examination: normal. Prophylactic Antibiotics: The patient does not require prophylactic antibiotics. Prior Anticoagulants: The patient has taken no previous anticoagulant or antiplatelet agents. ASA Grade Assessment: II - A patient with mild systemic disease. After reviewing the risks and benefits, the patient was deemed in satisfactory condition to undergo the procedure. The anesthesia plan was to use moderate sedation / analgesia (conscious sedation). Immediately prior to administration of medications, the patient was re-assessed for adequacy to receive sedatives. The heart rate, respiratory rate, oxygen saturations, blood pressure, adequacy of pulmonary ventilation, and response to care were monitored throughout the procedure. The physical status of the patient was re-assessed after the procedure. After I obtained informed consent, the scope was passed under direct vision. Throughout the procedure, the patient's blood pressure, pulse, and oxygen saturations were monitored continuously. The colonoscope was introduced through the anus and advanced to the cecum, identified by appendiceal orifice and ileocecal valve. The colonoscopy was performed without difficulty. The patient tolerated the procedure well. The quality of the bowel preparation was good. Moderate Sedation: Moderate (conscious) sedation was personally administered by an anesthesia professional. The following parameters were monitored: oxygen saturation, heart rate, blood pressure, and response to care. Scope In: 2:08:54 PM Scope Withdrawal Time 0 hours 9 minutes 19 seconds Scope Out: 2:22:30 PM Total Procedure Duration Time 0 hours 13 minutes 36 seconds Findings: The perianal and digital rectal examinations were normal. The colon (entire examined portion) appeared normal. Biopsies for histology were taken with a cold forceps from the entire colon for evaluation of microscopic colitis. Verification of patient identification for the specimen was done. Estimated blood loss was minimal. The terminal ileum appeared normal. Biopsies were taken with a cold forceps for histology. Verification of patient identification for the specimen was done. Estimated blood loss was minimal. Impression: - The entire examined colon is normal. Biopsied. - The examined portion of the ileum was normal. Biopsied. - The entire examined colon is normal. Biopsied. - The examined portion of the ileum was normal. Biopsied. Recommendation: - Discharge patient to home. - Resume previous diet. - Continue present medications. - Await pathology results. - Repeat colonoscopy in 5 years for surveillance based on pathology results. - Return to GI office in 2 weeks. Procedure Code(s): --- Professional --- 57928, Colonoscopy, flexible; with biopsy, single or multiple CPT copyright 2017 [employer]. All rights reserved. The codes documented in this report are preliminary and upon board machine set up operator review may be revised to meet current compliance requirements. Quique Mack DO 11/28/2020 2:32:18 PM This report has been signed electronically. Number of Addenda: 1 Note Initiated On: 11/28/2020 2:04 PM Addendum Number: 1 Addendum Date: 11/01/2021 4:08:21 PM MAC was used instead of moderate sedation for this patient. Quique Mack DO 11/01/2021 4:08:27 PM This report has been signed electronically.
== END 2020-11-28 15:05 ==
LOC: EN 12:25 → AC 12:27
PROVIDERS: Visit Provider Internal Medicine Gastroenterology
PROC: 0DJD8ZZ Inspection of Lower Intestinal Tract, Via Natural or Artificial Opening Endoscopic (ICD-10-PCS; CPT 45378; principal; 2020-11-28 13:25)
DX: K29.50 Unspecified chronic gastritis without bleeding (principal); K52.9 Noninfective gastroenteritis and colitis, unspecified; K21.00 Gastro-esophageal reflux disease with esophagitis, without bleeding; K30 Functional dyspepsia; K59.00 Constipation, unspecified; Z20.822 Contact with and (suspected) exposure to COVID-19; F17.200 Nicotine dependence, unspecified, uncomplicated
CPT/HCPCS: 43239; 45380; 87426; 88305; 88313; 88342; C9803; J7120; J2405

== ENCOUNTER → 2020-12-14 14:43 | Outpatient (CLI) | payer MEDICAID, SELFPAY | PROVIDERS: Referring Provider Internal Medicine Gastroenterology; Visit Provider Internal Medicine Gastroenterology | DX: K52.9 Noninfective gastroenteritis and colitis, unspecified (principal) | CPT/HCPCS: 36415 ==

== ENCOUNTER → 2021-01-04 | Outpatient (CLI) | payer MEDICAID, SELFPAY ==
[2021-01-05 18:13] LABS: Calprotectin, Stool <16 ug/g (0-120)
== END | disposition home or self-care (01) ==
LOC: LAB 11:04 → LABSPEC 11:05
PROVIDERS: Referring Provider Internal Medicine Gastroenterology; Visit Provider Internal Medicine Gastroenterology
DX: R19.7 Diarrhea, unspecified (principal); K52.9 Noninfective gastroenteritis and colitis, unspecified
CPT/HCPCS: 83993; 87493; 87506

== ENCOUNTER 2021-12-19 15:01 | Emergency (ER) | payer MEDICAID, SELFPAY ==
[2021-12-19 15:03] VITALS: BP 149/96; PULSE 64; RESP 15; TEMP 36.6; O2SAT 98; BMI 21.1
--- NOTE | 2021-12-19 15:27 | EDS_ITS ---
HPI History of Present Illness Chief Complaint: Abd Pain Informant: patient Onset/Context/Timing Onset: Today Current Severity: Moderate Maximum Severity: Severe Narrative Narrative: Patient present secondary to abdominal pain with vomiting. He has a history of Crohn's. He states he woke this morning with pain around the umbilical area with nausea and vomiting. He had similar pain 2 days ago and was seen at [facility] emergency room. Blood work there was reportedly unremarkable as was a CT scan. Patient was given morphine, Zofran, Bentyl and felt improved. He states he felt well yesterday and then woke this morning with recurrent pain. He denies any blood in his emesis. He has not had fever or chills. [facility] Medical History Alcohol use Anxiety Depression Indeterminate colitis Marijuana use Nausea & vomiting Smoker Wears glasses Home Medications budesonide 3 mg capsule,delayed,extended release 6 mg PO DAILY #60 ea 04/12/21 [Rx Last Taken Unknown] dicyclomine 20 mg tablet 40 mg PO TID 30 days #180 tabs 12/19/21 [Rx Last Taken Unknown] ondansetron 4 mg disintegrating tablet 4 mg PO Q8H PRN nausea and vomiting #10 tabs 12/19/21 [Rx Last Taken Unknown] prednisone 20 mg tablet 40 mg PO DAILY 30 days #60 tabs 12/19/21 [Rx Last Taken Unknown] Allergy/AdvReac Type Severity Reaction Status Date / Time No Known Allergies Allergy Verified 01/11/21 14:04 Family History Mother Hypertension High cholesterol Father CVA (cerebral vascular accident) Surgical History S/P colonoscopy (~07/01/18) Social History Smoking Status: Heavy Smoker (>10/day) second hand exposure: Yes alcohol intake: never substance use type: marijuana caffeine: Yes frequency: does not exercise ROS ROS ED Constitutional Constitutional ED: Denies chills or fever(s) Eyes Eyes: Denies change in vision or discharge from eye(s) ENT ENT ED: Denies discharge from eye(s), rhinorrhea or sore throat Cardiovascular Cardiovascular: Denies chest pain or palpitations Respiratory/Chest Respiratory/Chest: Denies cough or dyspnea Gastrointestinal Gastrointestinal: Reports abdominal pain, nausea and vomiting; Denies diarrhea Genitourinary Genitourinary ED: Denies difficulty urinating or dysuria Musculoskeletal Musculoskeletal: Denies back pain or extremity pain Integumentary Denies Abrasions or rash Neurologic Neurologic: Denies headache(s) or weakness Psychiatric Psychiatric: Denies anxiety or depression Allergic/Immunologic Allergic/Immunologic ED: Denies lip swelling or urticaria EXAM Physical Exam Const Vital Signs: 12/19/21 15:03 12/19/21 16:04 12/19/21 18:45 Temperature 98 F Temperature Source Temporal Pulse Rate 64 61 Respiratory Rate 15 16 16 Blood Pressure 149/96 H 128/84 H 136/64 H Blood Pressure Mean 113 98 88 Pulse Ox 98 100 98 Oxygen Delivery Method Room Air Room Air Room Air Positive well nourished and well developed General Appearance ED: well developed HEENT Reports normocephalic and head/scalp atraumatic Eyes PERRL and EOMs intact bilaterally Neck supple Chest Wall inspection of chest normal and palpation of chest normal Resp normal respiratory effort and clear to auscultation bilaterally Cardio regular rate and regular rhythm GI GI Narrative: Mild periumbilical tenderness palpation. No guarding or rebound. Hypoactive bowel sounds. Palpation: soft Extremity normal to inspection Neuro oriented x3 and no sensory deficits noted Sensorium / Orientation: alert Motor Exam: strength 5/5 throughout Psych mental status grossly normal Skin no rashes or lesions noted MDM MDM MDM Narrative Medical decision making narrative: Patient was given morphine, Reglan, Benadryl, IV fluids. He had taken Zofran shortly prior to arrival. Lab work obtained. Lab Data Labs: Laboratory Results - last 24 hr 12/19/21 12/19/21 12/19/21 15:10 15:10 15:10 WBC 8.4 RBC 5.13 Hgb 15.4 Hct 45.5 MCV 88.7 MCH 30.0 MCHC 33.8 RDW Std Deviation 39.8 RDW Coeff of Edvin 12.2 Plt Count 247 MPV 11.9 Immature Gran % (Auto) 0.400 Neut % (Auto) 79.9 H Lymph % (Auto) 12.6 L Starr % (Auto) 6.9 Eos % (Auto) 0.1 Baso % (Auto) 0.1 Absolute Neuts (auto) 6.7 Absolute Lymphs (auto) 1.05 Nucleated RBC % 0 Sodium 140 Potassium 3.6 Chloride 106 Carbon Dioxide 25.0 Anion Gap 9 BUN 17 Creatinine 1.31 H Estim Creat Clear Calc 80.95 Est GFR (MDRD) Af Amer 81 Est GFR (MDRD) Non-Af 67 BUN/Creatinine Ratio 13.0 Glucose 125 H Lactic Acid 1.6 Calcium 9.7 Total Bilirubin 1.10 H Direct Bilirubin 0.26 AST 15 ALT 29 Alkaline Phosphatase 70 Total Protein 8.9 H Albumin 4.5 Globulin 4.4 H Lipase 35 L Radiography Diagnostic Testing: Clinical Impression(s) from Imaging Studies Abdomen/Pelvis CTA 12/19/21 16:41 IMPRESSION: 1. Normal abdominal aorta and intra-abdominal vasculature. 2. Normal appearing small bowel. There is no evidence of intussusception or obstruction. 3. Nondistended thick walled transverse and descending colon. Question colitis. 4. Hepatic steatosis. 5. Vaguely increased density seen dependently within the gallbladder. Sludge versus vicarious excretion of contrast. Electronically Signed: Rohan Mcmahon DO at 17:17 EDT Reading Location ID and State: [address] [place] [address] Tel [phone], Service support , Treatment and Re-Evaluation Narrative: CBC and chemistry studies unremarkable. LFTs and lipase reveal no significant abnormalities. Lactic acid is 1.6. I was able to review the patient's CT scan from [facility] 2 days ago. The final impression comments on nonspecific constellation of bowel findings which raises the question of mild enterocolitis. I did note in the body of the report they state that small intussusception is noted in the right lower quadrant small bowel loops, likely transient. No bowel obstruction. In light of this patient was sent for CTA of the abdomen and pelvis today. This reveals no evidence of intussusception or obstruction. There is nondistended thick-walled transverse and descending colon. Question colitis. I spoke with Dr. Mack who has seen the patient in the past. He is concerned that these changes are secondary to ischemia. He wants the patient started on scheduled Bentyl every 8 hours and prednisone 40 mg a day. He will see the patient in the office for follow-up and work on tapering the steroids. This has been discussed with the patient. I will also write him for additional Zofran. Discharge Plan Triage Chief Complaint: Abd Pain ED Provider: Mallika Mauro Dx/Rx/DC Orders Clinical Impression: Colitis Prescriptions: New dicyclomine 20 mg tablet 40 mg PO TID 30 Days Qty: 180 0RF prednisone 20 mg tablet 40 mg PO DAILY 30 Days Qty: 60 0RF ondansetron 4 mg tablet,disintegrating 4 mg PO Q8H PRN (Reason: nausea and vomiting) Qty: 10 0RF No Action budesonide 3 mg capsule,delayed,extend.release 6 mg PO DAILY Qty: 60 2RF Rx Instructions: take two tablets once daily. Primary Care Provider: Care Physician,No Primary Referrals: Quique Mack DO [Med Staff - Active Staff] - 1-2 Weeks Care Physician,No Primary [Primary Care Provider] - Activity Restrictions/Additional Instructions: As discussed, your CT scan reveals bowel inflammation across the upper abdomen and left side. Dr. Mack believes this is secondary to the transient telescoping that was noted on your recent CT scan. He would like you treated with Bentyl every 8 hours. He would also like you started on prednisone daily. He will see you in the office and taper these medications as appropriate. Please return to the hospital for worsened abdominal pain, fever, bloody diarrhea, any concerns. Disposition Disposition: Home, Self Care
[2021-12-19] MEDS: Metoclopramide 10 MG/2 ML Vial IV (15:41)
[2021-12-19] MEDS: Morphine 4 MG/ML Syringe IV (15:43)
[2021-12-19] MEDS: DiphenhydrAMINE 50 MG/ML Syringe 25 MG IV (15:43)
[2021-12-19] MEDS: 0.9% Normal Saline 1,000 ML 1000 ML IV (15:45)
[2021-12-19 15:55] LABS: Absolute Lymphocyte Count 1.05 X10^3/uL (0.83-4.51); Absolute Neutrophil Count 6.7 X10^3/uL (2.0-7.7); Basophil# 0.01 X10^3/uL; Basophil% 0.1 % (0-1); Eosinophil# 0.01 X10^3/uL; Eosinophils% 0.1 % (0-5); Hematocrit 45.5 % (40-54); Hemoglobin 15.4 g/dL (13.0-16.5); Lymphocyte # 1.05 X10^3/ul (0.83-4.51); Lymphocyte % 12.6 % (19-41); Mean Corp Hgb Conc 33.8 g/dL (32-36); Mean Corpuscular Volume 88.7 fL (80-94); Mean Platelet Vol. 11.9 fl (6.2-12.0); Monocyte# 0.58 X10^3/uL; Monocyte% 6.9 % (0-10); NRBC Flagged by Analyzer 0 % (0-5); Neutrophil # 6.68 X10^3/uL (2.7-7.7); Neutrophil % 79.9 % (47-70); Platelet Count 247 K/mm3 (150-450); RBC Distribution Width CV 12.2 % (11.6-14.6); RBC Distribution Width SD 39.8 fl (35.1-43.9); Red Blood Count 5.13 M/mm3 (4.6-6.2); White Blood Count 8.4 K/mm3 (4.4-11.0)
[2021-12-19 16:04] VITALS: BP 128/84; PULSE 61; RESP 16; O2SAT 100
[2021-12-19 16:09] LABS: AST(SGOT) 15 U/L (15-37); Alanine Aminotransfer ALT/SGPT 29 U/L (16-61); Albumin, Serum 4.5 g/dL (3.2-5.0); Alkaline Phosphatase 70 U/L (45-117); Anion Gap 9 (5-15); BUN 17 mg/dL (7-18); Bilirubin, Direct 0.26 mg/dL (0.00-0.30); Calcium,Total 9.7 mg/dL (8.5-10.1); Chloride 106 mmol/L (98-107); Creatinine, Serum 1.31 mg/dL (0.70-1.30); EST Glomerular Filtration Rate 67 mL/min (>60); Est Glom Filt Rate - Afr Amer 81 mL/min (>60); Estimated Creatinine Clearance 80.95 ml/min; Globulin 4.4 g/dL (2.2-4.2); Glucose 125 mg/dL (74-106); Lipase 35 U/L (73-393); Potassium 3.6 mmol/L (3.5-5.1); Protein, Total 8.9 g/dL (6.4-8.2); Sodium Level 140 mmol/L (136-145)
[2021-12-19 16:28] LABS: Lactic Acid 1.6 mmol/L (0.4-1.9)
--- NOTE | 2021-12-19 16:41 | CT_ITS ---
STUDY: CTA OF THE ABDOMINAL AORTA REASON FOR EXAM: Male, 31 years old. Abdominal pain. Transient intussusception noted on recent outside CT. History of Crohn''s disease. RADIATION DOSAGE (If Supplied By Facility): CTDIvol = ( 21.37 ) mGy, DLP = ( 400.42 ) mGycm TECHNIQUE: Axial CT angiography multi-detector data acquisition was obtained from the diaphragm to the ischial tuberosity following intravenous administration of IV 100mL Isovue-370. Axial images and MIP images were reconstructed from the axial data set. Post-processing of the angiographic images was performed, with multiplanar reformation and 3D reconstruction. Individualized dose optimization techniques were used for this CT. TECHNICAL QUALITY: Good COMPARISON: CT of the abdomen and pelvis, 08/02/2018. Descriptors of Narrowing: None (0%) Mild (< 50%) Moderate (50-70%) Severe (70-90%) Subtotal/Total Occlusion (90-100%) Non-Evaluable (technically non-diagnostic FINDINGS: Abdominal aorta: No demonstrated narrowing. Celiac and superior mesenteric arteries: No demonstrated narrowing. Inferior mesenteric artery: No demonstrated narrowing. Right renal artery(arteries): No demonstrated narrowing. Left renal artery(arteries): No demonstrated narrowing. Right common iliac artery: No demonstrated narrowing. Right external iliac artery: No demonstrated narrowing. Right internal iliac artery: No demonstrated narrowing. Left common iliac artery: No demonstrated narrowing. Left external iliac artery: No demonstrated narrowing. Left internal iliac artery: No demonstrated narrowing. Lung bases are clear. The heart is normal in size. Fatty infiltration of liver without focal mass. Mildly increased density in the gallbladder lumen dependently. Question slight versus vicarious excretion of contrast. No distinct gallstones. No biliary ductal dilatation. Normal spleen. Normal pancreas. Normal adrenal glands. Normal bilateral kidneys. Normal bilateral ureters. Prominent IVC and iliac venous structures. Normal retroperitoneum. Normal stomach. Normal small bowel. There is no evidence of wall thickening stricture or skip lesions. The proximal colon appears grossly normal. There is poor distention of the transverse and descending colon possibly colitis cannot be ruled out. Normal appendix. Normal urinary bladder. Normal prostate and seminal vesicles. No pelvic lymphadenopathy. No free air or free fluid is seen within the peritoneal cavity. Normal abdominal wall. Normal visualized osseous structures. CT/CT ANGIO ABD&PEL W/O&W/DYE IMPRESSION: 1. Normal abdominal aorta and intra-abdominal vasculature. 2. Normal appearing small bowel. There is no evidence of intussusception or obstruction. 3. Nondistended thick walled transverse and descending colon. Question colitis. 4. Hepatic steatosis. 5. Vaguely increased density seen dependently within the gallbladder. Sludge versus vicarious excretion of contrast. Electronically Signed: Rohan Mcmahon DO at 17:17 EDT ,
[2021-12-19] MEDS: 0.9% Normal Saline 1,000 ML 150 ML IV (18:37)
[2021-12-19] MEDS: Ondansetron 4 MG/2 ML Vial IV (18:43)
[2021-12-19 18:45] VITALS: BP 136/64; RESP 16; O2SAT 98
[2021-12-19 19:12] VITALS: BP 125/74; PULSE 82; RESP 18; O2SAT 99
== END 2021-12-19 19:19 | disposition home or self-care (01) ==
PROVIDERS: Emergency Provider Emergency Medicine; Visit Provider Emergency Medicine
DX: K52.9 Noninfective gastroenteritis and colitis, unspecified (principal); F17.200 Nicotine dependence, unspecified, uncomplicated; Z79.899 Other long term (current) drug therapy
CPT/HCPCS: 74174; 80048; 80076; 83605; 83690; 85025; 96361; 96374; 96375; 99283; J7030; Q9967; A4216; J2405

== ENCOUNTER 2021-12-22 13:22 | Emergency (ER) | payer MEDICAID, SELFPAY ==
[2021-12-22 13:23] VITALS: BP 144/109; PULSE 70; RESP 20; TEMP 36.2; O2SAT 99; BMI 20.3
[2021-12-22 13:52] LABS: Absolute Neutrophil Count 7.5 X10^3/uL (2.0-7.7); Hemoglobin 14.9 g/dL (13.0-16.5); Lymphocyte % 8.3 % (19-41); Mean Corp Hgb Conc 33.9 g/dL (32-36); Mean Corpuscular Hgb 29.7 pg (27.0-32.0); Mean Corpuscular Volume 87.6 fL (80-94); Mean Platelet Vol. 11.2 fl (6.2-12.0); Monocyte# 0.18 X10^3/uL; Monocyte% 2.1 % (0-10); NRBC Flagged by Analyzer 0 % (0-5); Neutrophil # 7.49 X10^3/uL (2.7-7.7); Neutrophil % 89.2 % (47-70); Platelet Count 253 K/mm3 (150-450); RBC Distribution Width SD 38.7 fl (35.1-43.9); Red Blood Count 5.02 M/mm3 (4.6-6.2); White Blood Count 8.4 K/mm3 (4.4-11.0)
--- NOTE | 2021-12-22 14:04 | EDS_ITS ---
HPI HPI - GI History of Present Illness Chief Complaint: Abd Pain Narrative Narrative: 31-year-old male with stated history of Crohn's disease presenting again with nausea, vomiting, abdominal pain. He sees Dr. Mack on an outpatient basis. He is treated with budesonide, dicyclomine. Previously seen at [facility] and had a normal CT of the abdomen pelvis with IV contrast and normal lab work. It was noted by the ED physician at [facility] when he presented here the other day that there was a intussusception noted on the CT. Follow-up blood work was normal. Patient had a CTA of the abdomen pelvis which was also normal. Dr. Mack was consulted as he sees the patient. He recommended medications for him to go home. He has continued abdominal pain, nausea, vomiting. Abdominal pain is epigastric. Patient states he has been taking his medications. Patient does report has been taking his prednisone on an empty stomach in the morning. Not had a fever, chills. [facility] Medical History Alcohol use Anxiety Depression Indeterminate colitis Marijuana use Nausea & vomiting Smoker Wears glasses Home Medications budesonide 3 mg capsule,delayed,extended release 6 mg PO DAILY #60 ea 04/12/21 [Rx Last Taken Unknown] dicyclomine 20 mg tablet 40 mg PO TID 30 days #180 tabs 12/19/21 [Rx Last Taken Unknown] ondansetron 4 mg disintegrating tablet 4 mg PO Q8H PRN nausea and vomiting #10 tabs 12/19/21 [Rx Last Taken Unknown] prednisone 20 mg tablet 40 mg PO DAILY 30 days #60 tabs 12/19/21 [Rx Last Taken Unknown] pantoprazole 20 mg tablet,delayed release (Protonix) 20 mg PO BID #60 tabs 12/22/21 [Rx Last Taken Unknown] promethazine 25 mg tablet 25 mg PO TID PRN nausea and vomiting #20 tabs 12/22/21 [Rx Last Taken Unknown] sucralfate 100 mg/mL oral suspension (Carafate) 10 ml PO TID #400 mL 12/22/21 [Rx Last Taken Unknown] Allergy/AdvReac Type Severity Reaction Status Date / Time No Known Allergies Allergy Verified 01/11/21 14:04 Family History Mother Hypertension High cholesterol Father CVA (cerebral vascular accident) Surgical History S/P colonoscopy (~07/01/18) Social History Smoking Status: Heavy Smoker (>10/day) second hand exposure: Yes alcohol intake: never substance use type: marijuana caffeine: Yes frequency: does not exercise ROS ROS ED Review of Systems ROS Unobtainable: Denies due to encephalopathy Constitutional Constitutional ED: Denies chills or fever(s) ENT ENT ED: Denies rhinorrhea or sore throat Cardiovascular Cardiovascular: Denies chest pain or palpitations Respiratory/Chest Respiratory/Chest: Denies cough or dyspnea Gastrointestinal Gastrointestinal: Reports abdominal pain, nausea and vomiting Genitourinary Genitourinary ED: Denies dysuria or hematuria Musculoskeletal Musculoskeletal: Denies arthralgias Integumentary Denies abscess or Abrasions Neurologic Neurologic: Denies headache(s) or paresthesias Psychiatric Psychiatric: Denies anxiety or depression Endocrine Endocrinology: Denies polydipsia or polyphagia EXAM Physical Exam Const Vital Signs: 12/22/21 13:23 Temperature 97.1 F L Temperature Source Temporal Pulse Rate 70 Respiratory Rate 20 H Blood Pressure 144/109 H Blood Pressure Mean 120 Pulse Ox 99 Oxygen Delivery Method Room Air Positive well nourished General Appearance ED: NAD; Negative for pallor HEENT Reports moist mucous membranes normocephalic and atraumatic Eyes PERRL and EOMs intact bilaterally General Eye ED: Negative for pale conjunctiva or scleral icterus Neck no lymphadenopathy Resp normal respiratory effort Effort and Inspection: Negative for respiratory distress Cardio regular rate GI GI Narrative: Diffusely tender with more tenderness in the epigastric. No peritoneal signs. No rebound or guarding Extremity full ROM Neuro CN's II-XII intact bilaterally and moves all extremities Sensorium / Orientation: alert Psych mental status grossly normal Skin General Skin Exam: Negative for jaundice or pallor MDM MDM MDM Narrative Medical decision making narrative: Patient with reported history of Crohn's disease who sees Dr. Mack. Has had upper and lower endoscopy Dr. Mack. He follows with him. He is previously been on budesonide per Dr. Mack. He was discharged on the with dicyclomine 40 mg 3 times daily, Zofran every 8 hours as needed nausea/vomiting, prednisone 40 mg daily. Patient had a CT of the ab pelvis with IV contrast on the and a CTA on the . Blood work is obtained. Patient given Haldol, morphine, Protonix. Is feeling better on reexamination at 3:40 PM. Blood work was reviewed and his CBC and CMP are unremarkable. His potassium is slightly changed at 3.4. Creatinine is improved. Lipase normal. I do not believe he needs a CT of the abdomen pelvis since he is already had [address] Mack and he recommends that the patient take his prednisone with food and does agree the patient likely does not get a CAT scan.. He recommends Protonix 20 mg p.o. twice daily as well as Carafate 3 times daily. This will be provided. Patient was also given Phenergan because he states the Zofran is not helping all the time. He is to follow-up with Dr. Mack. Return precautions discussed. Impression: 1. Abdominal pain 2. Nausea/vomiting Lab Data Labs: Laboratory Results - last 24 hr 12/22/21 12/22/21 13:40 13:40 WBC 8.4 RBC 5.02 Hgb 14.9 Hct 44.0 MCV 87.6 MCH 29.7 MCHC 33.9 RDW Std Deviation 38.7 RDW Coeff of Edvin 12.0 Plt Count 253 MPV 11.2 Immature Gran % (Auto) 0.400 Neut % (Auto) 89.2 H Lymph % (Auto) 8.3 L Lyman % (Auto) 2.1 Eos % (Auto) 0.0 Baso % (Auto) 0.0 Absolute Neuts (auto) 7.5 Absolute Lymphs (auto) 0.70 L Nucleated RBC % 0 Sodium 141 Potassium 3.4 L Chloride 104 Carbon Dioxide 27.0 Anion Gap 10 BUN 17 Creatinine 1.28 Estim Creat Clear Calc 79.73 Est GFR (MDRD) Af Amer 84 Est GFR (MDRD) Non-Af 69 BUN/Creatinine Ratio 13.3 Glucose 142 H Calcium 9.5 Total Bilirubin 0.90 AST 18 ALT 22 Alkaline Phosphatase 71 Total Protein 8.2 Albumin 4.5 Globulin 3.7 Albumin/Globulin Ratio 1.2 Lipase 132 Discharge Plan Triage Chief Complaint: Abd Pain ED Provider: Yfn Fagan Dx/Rx/DC Orders Instructions: ED Vomiting (Adult), ED Abdominal Pain Unkn Cause Male... Prescriptions: New promethazine 25 mg tablet 25 mg PO TID PRN (Reason: nausea and vomiting) Qty: 20 0RF pantoprazole [Protonix] 20 mg tablet,delayed release (DR/EC) 20 mg PO BID Qty: 60 0RF sucralfate [Carafate] 100 mg/mL suspension 10 ml PO TID Qty: 400 0RF No Action dicyclomine 20 mg tablet 40 mg PO TID 30 Days Qty: 180 0RF prednisone 20 mg tablet 40 mg PO DAILY 30 Days Qty: 60 0RF ondansetron 4 mg tablet,disintegrating 4 mg PO Q8H PRN (Reason: nausea and vomiting) Qty: 10 0RF budesonide 3 mg capsule,delayed,extend.release 6 mg PO DAILY Qty: 60 2RF Rx Instructions: take two tablets once daily. Primary Care Provider: Care Physician,No Primary Referrals: Quique Mack DO [Med Staff - Active Staff] - 3-5 Days Care Physician,No Primary [Primary Care Provider] - Disposition Disposition: Home, Self Care
[2021-12-22 14:14] LABS: ALB/GLOB Ratio 1.2 RATIO (0.9-2.4); AST(SGOT) 18 U/L (15-37); Alanine Aminotransfer ALT/SGPT 22 U/L (16-61); Albumin, Serum 4.5 g/dL (3.2-5.0); Alkaline Phosphatase 71 U/L (45-117); Anion Gap 10 (5-15); BUN 17 mg/dL (7-18); BUN/Creat Ratio 13.3 RATIO (10-20); Calcium,Total 9.5 mg/dL (8.5-10.1); Chloride 104 mmol/L (98-107); Creatinine, Serum 1.28 mg/dL (0.70-1.30); EST Glomerular Filtration Rate 69 mL/min (>60); Est Glom Filt Rate - Afr Amer 84 mL/min (>60); Estimated Creatinine Clearance 79.73 ml/min; Globulin 3.7 g/dL (2.2-4.2); Glucose 142 mg/dL (74-106); Lipase 132 U/L (73-393); Potassium 3.4 mmol/L (3.5-5.1); Protein, Total 8.2 g/dL (6.4-8.2); Sodium Level 141 mmol/L (136-145)
[2021-12-22] MEDS: Morphine 4 MG/ML Syringe IV (14:27)
[2021-12-22] MEDS: Haloperidol Lactate 5 MG/ML Vial 2 MG IV (14:27)
[2021-12-22] MEDS: 0.9% Normal Saline 1,000 ML 999 ML IV (14:27)
[2021-12-22 15:59] VITALS: RESP 16
== END 2021-12-22 16:10 | disposition home or self-care (01) ==
PROVIDERS: Emergency Provider Student in an Organized Health Care Education/Training Program; Visit Provider Student in an Organized Health Care Education/Training Program
DX: R10.13 Epigastric pain (principal); R11.2 Nausea with vomiting, unspecified; F32.A Depression, unspecified; F41.9 Anxiety disorder, unspecified; F17.200 Nicotine dependence, unspecified, uncomplicated; Z79.52 Long term (current) use of systemic steroids; Z79.899 Other long term (current) drug therapy
CPT/HCPCS: 80053; 83690; 85025; 96365; 96375; 99282; J7030; A4216

== ENCOUNTER → 2022-09-27 | Outpatient (CLI) | payer MEDICAID, SELFPAY ==
[2022-09-27 13:16] LABS: Erythrocyte Sedimentation Rate 3 mm/hr (0-20)
[2022-09-27 13:19] LABS: Absolute Lymphocyte Count 1.55 X10^3/uL (0.83-4.51); Absolute Neutrophil Count 2.2 X10^3/uL (2.0-7.7); Eosinophil# 0.11 X10^3/uL; Eosinophils% 2.6 % (0-5); Hematocrit 43.3 % (40-54); Hemoglobin 14.2 g/dL (13.0-16.5); Lymphocyte # 1.55 X10^3/ul (0.83-4.51); Mean Corp Hgb Conc 32.8 g/dL (32-36); Mean Corpuscular Hgb 30.1 pg (27.0-32.0); Mean Corpuscular Volume 91.9 fL (80-94); Mean Platelet Vol. 11.6 fl (6.2-12.0); Monocyte# 0.44 X10^3/uL; Monocyte% 10.2 % (0-10); NRBC Flagged by Analyzer 0 % (0-5); Neutrophil # 2.19 X10^3/uL (2.7-7.7); Neutrophil % 50.7 % (47-70); Platelet Count 183 K/mm3 (150-450); RBC Distribution Width CV 12.8 % (11.6-14.6); Red Blood Count 4.71 M/mm3 (4.6-6.2); White Blood Count 4.3 K/mm3 (4.4-11.0)
[2022-09-27 13:51] LABS: AST(SGOT) 19 U/L (15-37); Alanine Aminotransfer ALT/SGPT 24 U/L (16-61); Albumin, Serum 3.9 g/dL (3.2-5.0); Alkaline Phosphatase 65 U/L (45-117); Anion Gap 4 (5-15); BUN 16 mg/dL (7-18); BUN/Creat Ratio 14.3 RATIO (10-20); CRP < 2.90 mg/L (0.0-3.0); Calcium,Total 8.8 mg/dL (8.5-10.1); Chloride 105 mmol/L (98-107); Creatinine, Serum 1.12 mg/dL (0.70-1.30); EST Glomerular Filtration Rate 80 mL/min (>60); Est Glom Filt Rate - Afr Amer 97 mL/min (>60); Globulin 3.9 g/dL (2.2-4.2); Glucose 96 mg/dL (74-106); LDH 151 U/L (87-241); Potassium 4.2 mmol/L (3.5-5.1); Protein, Total 7.8 g/dL (6.4-8.2); Sodium Level 140 mmol/L (136-145)
[2022-10-01 16:09] LABS: Albumin 4.2 g/dL (2.9-4.4); Alpha-1-Globulins 0.3 g/dL (0.0-0.4); Alpha-2-Globulins 0.7 g/dL (0.4-1.0); Endomysial Antibody IgA Negative (Negative); Gamma Globulin 1.2 g/dL (0.4-1.8); Immunoglobulin A 357 mg/dL (90-386); Immunoglobulin E 295 IU/mL (6-495); Immunoglobulin G 1452 mg/dL (603-1613); Immunoglobulin M 54 mg/dL (20-172); PROEL- TOTAL PROTEIN 7.6 g/dL (6.0-8.5); t-Transglutaminase IgA <2 U/mL (0-3)
== END | disposition home or self-care (01) ==
PROVIDERS: Referring Provider Internal Medicine Gastroenterology; Visit Provider Internal Medicine Gastroenterology
DX: K50.90 Crohn's disease, unspecified, without complications (principal)
CPT/HCPCS: 36415; 80053; 82784; 82785; 83516; 83615; 84165; 85025; 85652; 86140; 86225; 86235; 86255; 86334